=== PATIENT | male | born 1955 | race Caucasian/White ===

== ENCOUNTER 2019-03-11 05:58 | Outpatient (RCR) | payer MEDICARE, MEDICAID, SELFPAY | END 2019-03-25 00:01 | LOC: ONCMED 05:58 | PROVIDERS: Family Provider Family Medicine; Visit Provider Internal Medicine Hematology & Oncology | DX: C18.5 Malignant neoplasm of splenic flexure (principal); R97.0 Elevated carcinoembryonic antigen [CEA]; Z79.899 Other long term (current) drug therapy; Z90.49 Acquired absence of other specified parts of digestive tract | CPT/HCPCS: 36591; 80053; 82378; 85025; 99214; J1642 ==

== ENCOUNTER 2019-03-26 11:23 | Emergency (ER) | payer MEDICARE, MEDICAID, SELFPAY ==
[2019-03-26 11:35] VITALS: PULSE 82; RESP 16; TEMP 37; BMI 32.5
--- NOTE | 2019-03-26 11:53 | PC.NURSE ---
Brief assessment made-pt asked who his physician was-nurse told pt. Pt states, no you will move me to the other side of the ER Nurse informed pt this is the only clean room we have-Dr. Herrmann's side is full. Pt states, Give me my fucking medicine I m leaving. Pt left ambulatory. Pt did not appear to be in distress upon departure. Pt left before signing any forms.
== END 2019-03-26 11:57 | disposition home or self-care (01) ==
LOC: ER 11:55
PROVIDERS: Emergency Provider Family Medicine; Family Provider Family Medicine; PCP Family Medicine
DX: Z53.21 Procedure and treatment not carried out due to patient leaving prior to being seen by health care provider (principal)
CPT/HCPCS: 99281

== ENCOUNTER → 2019-03-31 13:33 | Outpatient (BNVA) | payer MEDICARE, MEDICAID, SELFPAY | PROVIDERS: Family Provider Family Medicine; PCP Family Medicine; Visit Provider Specialist | DX: G43.909 Migraine, unspecified, not intractable, without status migrainosus (principal) | CPT/HCPCS: 96372 ==

== ENCOUNTER → 2019-04-28 13:53 | Outpatient (BNVA) | payer MEDICARE, MEDICAID, SELFPAY | PROVIDERS: Family Provider Family Medicine; PCP Family Medicine; Visit Provider Specialist | DX: G43.909 Migraine, unspecified, not intractable, without status migrainosus (principal) | CPT/HCPCS: 96372 ==

== ENCOUNTER 2019-05-06 13:21 | Outpatient (CLI) | payer MEDICARE, MEDICAID, SELFPAY ==
[2019-05-06 14:31] LABS: Basophils # 0.1 10^3/uL (0.0-0.1); Eosinophils # 0.2 10^3/uL (0.0-0.8); Hematocrit 42.2 % (42.0-52.0); Hemoglobin 14.3 g/dL (11.7-16.6); Lymphocytes # 1.7 10^3/uL (0.8-4.8); Lymphocytes % 18.4 %; Mean Corpuscular HGB Conc 33.9 g/dL (30.0-36.0); Mean Corpuscular Hemoglobin 31.7 pg (28.0-34.0); Mean Corpuscular Volume 93.6 fL (80-94); Mean Platelet Volume 10.5 fL (7.4-10.4); Monocytes # 0.6 10^3/uL (0.2-0.9); Monocytes % 6.8 %; Neutrophils # 6.7 10^3/uL (1.8-7.7); Neutrophils % 71.4 %; Nucleated Red Blood Cells % 0 %; Platelet Count 181 10^3/cmm (130-400); Red Blood Count 4.51 10^6/uL (4.1-5.3); Red Cell Distribution Width 12.1 % (12.1-15.1); White Blood Count 9.4 10^3/uL (4.0-10.0)
[2019-05-06 14:55] LABS: Alanine Aminotransferase 10 U/L (0-41); Albumin Level 4.2 g/dL (3.5-5.2); Alkaline Phosphatase 96 IU/L (40-130); Anion Gap 19.4 (5-19); Aspartate Amino Transferase 17 U/L (0-40); Blood Urea Nitrogen 8 mg/dL (8-23); Calcium 10.1 mg/dL (8.5-10.5); Carbon Dioxide 22 mmol/L (22-29); Chloride 103 mmol/L (98-107); Globulin 4.6 g/dL (1.3-4.6); Glomerular Filtration Rate 113.2 mL/min (90-130); Glucose 163 mg/dL (65-115); Potassium 3.4 mmol/L (3.5-5.1); Sodium 141 mmol/L (136-145); Total Bilirubin 0.4 mg/dL (0.15-1.2); Total Protein 8.8 g/dL (6.6-8.7)
--- NOTE | 2019-05-06 15:29 | ONC FU_ITS ---
Dr. Melendrez follow up note Patient: Gary Christiansen Unit #: [id number]: 1955 Dicatated By: Deniz Melendrez M.D.Date of Visit:May 06, 2019 Onc Med Follow-up/Prog Note History of Present Illness: Mr. Christiansen, is a 63-year-old gentleman recently diagnosed with colon cancer involving left splenic flexure. He presented to his PMD with constipation and upper abdominal pain. He underwent colonoscopy on 07/04/2018 which showed a partially obstructing, medium-sized fungating, friable, infiltrative, malignant appearing mass around the level of distal transverse colon/splenic flexure. A biopsy was obtained which confirmed adenocarcinoma. His hemoglobin was 10.2 He underwent segmental resection on 07/18/2018. The final pathology report showed tumor size 4 x 3.5 cm, focal penetration through muscularis propria into serosal connective tissue. There was clear surgical margins but positive lymphovascular space invasion and 0 out of 12 lymph nodes showed metastatic disease. Stage II, high risk e.g. near obstructive lesion at presentation, lymphovascular invasion present, and normal expression of MSI/MMR. CT scan of abdomen was done in May 2018 showed possible minimum acute diverticulitis. Mr. Christiansen has been advised to pursue adjuvant chemotherapy. His treatment plan is XELOX. he will be on a 21 day cycle for 3-6 months. He began his first dose of XELOX on 09/16/2018.Completed 6 cycles of Xelox on 02/11/2019, follow-up CEA was mildly elevated at 8.2 on 03/11/2019 compared to 6.3 on 12/17/2018 so followed up by CT PET scan done on 04/30/2019 showed no evidence of metabolically active disease. 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 Came for follow-up, denies any specific complaints, no fever or chills, no nausea vomiting no diarrhea constipation, no jaundice, appetite is good. No peripheral numbness. Medications: Aimovig 1 Subcutaneous q 4 weeks, Albuterol Sulfate HFA Aerosol, solution Inhalation PRN, Capecitabine 3 Tablet (of 500 mg) Oral b.i.d., Capecitabine 1 Tablet (of 150 mg) Oral b.i.d., Cartia XT 1 Tablet (of 180 mg) Tablet Delayed Release Oral daily, Donepezil HCl 1 Tablet (of 23 mg) Oral daily, DULoxetine HCl 1 Capsule (of 60 mg) Capsule Delayed Release Particles Oral b.i.d., Flonase 1 (50 mcg/act) Suspension Nasal PRN, Gabapentin 1 Tablet (of 800 mg) Oral daily, LORazepam 0.5 - 1 Tablet (of 1 mg) Oral t.i.d. PRN, Memantine HCl ER 1 Capsule (of 28 mg) Capsule SR 24 HR Oral daily, Metoprolol Tartrate 0.5 Tablet (of 25 mg) Oral b.i.d., Morphine Sulfate 1 Tablet (of 30 mg) Oral four times a day PRN, Omeprazole 1 Capsule (of 40 mg) Capsule Delayed Release Oral daily, Potassium Chloride ER 1 Tablet (of 20 meq) Tablet, controlled release Oral PRN, Prochlorperazine Maleate 1 Tablet (of 10 mg) Oral q 4 hours PRN, Simvastatin 1 Tablet (of 80 mg) Oral daily, Topiramate 1 Tablet (of 100 mg) Oral b.i.d., Zonisamide 4 Capsule (of 100 mg) Oral daily Allergies: Flucelvax Review of Systems: Constitutional - Appetite is poor and weight is decreasing. Positive for hot flashes and night sweats. Energy level is poor, ENMT - Positive for sinus congestion/drainage. No mouth sores. No sore throat or difficulty swallowing, Hematologic/Lymphatic - Pt states that he bruises and bleeds easily, Respiratory - Positive for shortness of breath. No cough. No pleuritic pain or hemoptysis, Cardiovascular - No angina pain. No palpitations, Gastrointestinal - Positive for nausea. No heartburn or acid reflux. No constipation. No blood in the stool or black stools. Positive for diarrhea, Genitourinary (M) - No dysuria or hematuria. No urgency or incontinence. Positive for nocturia, Musculoskeletal - Positive for joint and bone pain, Neurologic - No headache or dizziness. No numbness/paresthesias or other focal neurologic symptoms, Psychiatric - Positive for insomnia and anxiety. Pt appears agitated today. Vital Signs: Performed on May 06, 2019 15:02 Height - 70.00 in Weight - 232.6 lbs (HIGH) BSA - 2.23 sq.m BMI - 33.37 (HIGH) Temperature - 98.0 F (LOW) Pulse - 82 /min Respiration - 20 /min BP - 128/80 mm(hg) O2 Sat - 98 % Pain - 10 Performance Status: 0 - Fully active, able to carry on all predisease activities without restrictions. (ECOG) Physical Examination: ENMT - No oral exudates, ulcers, masses, thrush or mucositis. Oropharynx clear. Tongue normal, Respiratory - Lungs are clear to auscultation without rhonchi or wheezing, Cardiovascular - Regular rate and rhythm of heart, Abdomen - Non-tender, non-distended, Good bowel sounds. No guarding or rebound tenderness. No pulsatile masses, Extremities - no edema. Lab/Imaging: Test performed on May 06, 2019 13:45 WBC 9.4 10 3/uL RBC 4.51 10 6/uL HGB 14.3 g/dL HCT 42.2 % MCV 93.6 fL MCH 31.7 pg MCHC 33.9 g/dL RDW 12.1 % Platelet Count 181 10 3/cmm MPV 10.5 fL Neutrophils 6.7 10 3/uL Lymphocytes 1.7 10 3/uL Monocytes 0.6 10 3/uL Eosinophils 0.2 10 3/uL Basophils 0.1 10 3/uL Neutrophil % 71.4 % Lymphocyte % 18.4 % Monocyte % 6.8 % Eosinophil % 2.0 % Basophils % 1.0 % Test performed on Mar 11, 2019 12:20 Sodium 138 mmol/L Potassium 3.7 mmol/L Chloride 100 mmol/L CO2 22 mmol/L Anion Gap 19.7 BUN 12 mg/dL Creatinine 0.6 mg/dL Cr Clearance (Est) 172.3100 mL/min eGFR 135.2 mL/min Glucose 167 mg/dl Calcium 9.5 mg/dL Protein, Total 8.7 g/dL Albumin 5.0 g/dL Globulin 3.7 gm/dL Bilirubin, Total 0.5 mg/dL ALT (SGPT) 17 U/L AST (SGOT) 29 U/L Alkaline Phosphatase 88 U/L CEA 8.2 ng/mL Impression: Infiltrating adenocarcinoma, involving left colon/splenic flexure status post exploratory laparotomy/segment resection on 07/19/2018, final pathology report showed low-grade, focal penetration through muscularis propria into serosal connective tissues, tumor size 4 x 3.5 cm, margins clear, T3 Lymphovascular invasion present, lymphatic response moderate, 0 out of 12 lymph nodes examined showed no evidence of metastatic disease N0 MSI/MMR normal expression Stage II, high risk e.g. near obstructive lesion at presentation, lymphovascular invasion present, and normal expression of MSI MMR. Mr. Christiansen has been advised to pursue adjuvant chemotherapy due to his high risk of recurrence. offered him XELOX as Mr Christiansen did not want to pursue continuous infusion of 5-FU. The current plan will be a 21 day cycle for 3-6 months as long as tolerated. Mr. Christiansen has been referred to Dr. Hargrove for venous access placement. 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 Plan: Discussed with patient regarding his labs white blood count 9.4 hemoglobin 14.3 crit 42.2 platelets 181,000 CMP within normal limit except glucose 163 and CEA is pending and CT PET scan findings were discussed with patient which showed no evidence of metastatic disease. Clinically, patient is doing well with no signs symptoms suggestive of recurrence of disease. 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 Patient has completed 6 months of recommended adjuvant chemotherapy with oxaliplatin/Xeloda. His follow-up CT PET scan showed no evidence of mass disease but his tumor marker CEA was persistently high. We'll follow his CEA level and if continued to go up we will consider follow-up colonoscopy to rule out local recurrence. Patient return to clinic in one month with CBC CMP and CEAand continue with monthly port maintenance Signed By: Deniz Melendrez M.D. <<Signature on File>>
[2019-05-06 20:28] LABS: Carcinoembryonic Antigen 5.5 ng/mL (0.0-4.7)
== END 2019-05-06 13:22 | disposition home or self-care (01) ==
LOC: ONCMED 13:24
PROVIDERS: Family Provider Family Medicine; PCP Family Medicine; Visit Provider Internal Medicine Hematology & Oncology
DX: C18.5 Malignant neoplasm of splenic flexure (principal); R97.0 Elevated carcinoembryonic antigen [CEA]; Z90.49 Acquired absence of other specified parts of digestive tract; Z92.21 Personal history of antineoplastic chemotherapy
CPT/HCPCS: 36591; 80053; 82378; 85025; 99214

== ENCOUNTER → 2019-05-09 12:01 | Outpatient (BNVA) | payer MEDICARE, MEDICAID, SELFPAY | PROVIDERS: Family Provider Family Medicine; PCP Family Medicine; Visit Provider Orthopaedic Surgery | DX: M25.572 Pain in left ankle and joints of left foot (principal) | CPT/HCPCS: 73610 ==

== ENCOUNTER → 2019-05-14 14:08 | Outpatient (BNVA) | payer MEDICARE, MEDICAID, SELFPAY | PROVIDERS: Family Provider Family Medicine; PCP Family Medicine; Referring Provider Nurse Practitioner; Visit Provider Nurse Practitioner | DX: E11.8 Type 2 diabetes mellitus with unspecified complications (principal); G89.4 Chronic pain syndrome; E78.00 Pure hypercholesterolemia, unspecified | CPT/HCPCS: 80053; 80061; 82044; 83036 ==

== ENCOUNTER → 2019-06-02 13:46 | Outpatient (BNVA) | payer MEDICARE, MEDICAID, SELFPAY | PROVIDERS: Family Provider Family Medicine; PCP Family Medicine; Visit Provider Specialist | DX: G43.709 Chronic migraine without aura, not intractable, without status migrainosus (principal) | CPT/HCPCS: 96372; G0463 ==

== ENCOUNTER 2019-06-10 12:23 | Outpatient (CLI) | payer MEDICARE, MEDICAID, SELFPAY ==
[2019-06-10 13:13] LABS: Alanine Aminotransferase 11 U/L (0-41); Albumin Level 4.3 g/dL (3.5-5.2); Alkaline Phosphatase 109 IU/L (40-130); Anion Gap 15.7 (5-19); Aspartate Amino Transferase 17 U/L (0-40); Blood Urea Nitrogen 11 mg/dL (8-23); Calcium 10.4 mg/dL (8.5-10.5); Carbon Dioxide 22 mmol/L (22-29); Chloride 103 mmol/L (98-107); Globulin 3.9 g/dL (1.3-4.6); Glomerular Filtration Rate 113.2 mL/min (90-130); Glucose 121 mg/dL (65-115); Osmolality Calculated 281 mOsm/kg (285-295); Potassium 3.7 mmol/L (3.5-5.1); Sodium 137 mmol/L (136-145); Total Bilirubin 0.4 mg/dL (0.15-1.2); Total Protein 8.2 g/dL (6.6-8.7)
[2019-06-10 14:26] LABS: Basophils # 0.1 10^3/uL (0.0-0.1); Eosinophils # 0.2 10^3/uL (0.0-0.8); Eosinophils % 1.9 %; Hematocrit 40.9 % (42.0-52.0); Hemoglobin 13.5 g/dL (11.7-16.6); Lymphocytes # 1.7 10^3/uL (0.8-4.8); Lymphocytes % 18.8 %; Mean Corpuscular Hemoglobin 31.9 pg (28.0-34.0); Mean Corpuscular Volume 96.7 fL (80-94); Mean Platelet Volume 10.9 fL (7.4-10.4); Monocytes # 0.8 10^3/uL (0.2-0.9); Monocytes % 8.7 %; Neutrophils # 6.2 10^3/uL (1.8-7.7); Neutrophils % 69.3 %; Nucleated Red Blood Cells % 0 %; Platelet Count 187 10^3/cmm (130-400); Red Blood Count 4.23 10^6/uL (4.1-5.3); Red Cell Distribution Width 12.8 % (12.1-15.1); White Blood Count 8.9 10^3/uL (4.0-10.0)
[2019-06-10 14:43] LABS: Carcinoembryonic Antigen 4.7 ng/mL (0.0-4.7)
--- NOTE | 2019-06-10 17:39 | ONC FU_ITS ---
Dr. Melendrez follow up note Patient: Gary Christiansen Unit #: [id number]: 1955 Dicatated By: Deniz Melendrez M.D.Date of Visit:Jun 10, 2019 Onc Med Follow-up/Prog Note History of Present Illness: Mr. Christiansen, is a 63-year-old gentleman recently diagnosed with colon cancer involving left splenic flexure. He presented to his PMD with constipation and upper abdominal pain. He underwent colonoscopy on 07/04/2018 which showed a partially obstructing, medium-sized fungating, friable, infiltrative, malignant appearing mass around the level of distal transverse colon/splenic flexure. A biopsy was obtained which confirmed adenocarcinoma. His hemoglobin was 10.2 He underwent segmental resection on 07/18/2018. The final pathology report showed tumor size 4 x 3.5 cm, focal penetration through muscularis propria into serosal connective tissue. There was clear surgical margins but positive lymphovascular space invasion and 0 out of 12 lymph nodes showed metastatic disease. Stage II, high risk e.g. near obstructive lesion at presentation, lymphovascular invasion present, and normal expression of MSI/MMR. CT scan of abdomen was done in May 2018 showed possible minimum acute diverticulitis. Mr. Christiansen has been advised to pursue adjuvant chemotherapy. His treatment plan is XELOX. he will be on a 21 day cycle for 3-6 months. He began his first dose of XELOX on 09/16/2018.Completed 6 cycles of Xelox on 02/11/2019, follow-up CEA was mildly elevated at 8.2 on 03/11/2019 compared to 6.3 on 12/17/2018 so followed up by CT PET scan done on 04/30/2019 showed no evidence of metabolically active disease. 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 Came for follow-up, denies any specific complaints, no fever or chills, no nausea vomiting, no abdominal pain, no jaundice, no diarrhea constipation. Medications: Aimovig 1 Subcutaneous q 4 weeks, Albuterol Sulfate HFA Aerosol, solution Inhalation PRN, Capecitabine 3 Tablet (of 500 mg) Oral b.i.d., Capecitabine 1 Tablet (of 150 mg) Oral b.i.d., Cartia XT 1 Tablet (of 180 mg) Tablet Delayed Release Oral daily, Donepezil HCl 1 Tablet (of 23 mg) Oral daily, DULoxetine HCl 1 Capsule (of 60 mg) Capsule Delayed Release Particles Oral b.i.d., Flonase 1 (50 mcg/act) Suspension Nasal PRN, Gabapentin 1 Tablet (of 800 mg) Oral daily, LORazepam 0.5 - 1 Tablet (of 1 mg) Oral t.i.d. PRN, Memantine HCl ER 1 Capsule (of 28 mg) Capsule SR 24 HR Oral daily, metFORMIN HCl 1 (850 mg) Tablet Oral daily, Metoprolol Tartrate 0.5 Tablet (of 25 mg) Oral b.i.d., Morphine Sulfate 1 Tablet (of 30 mg) Oral four times a day PRN, Narcan 1 - 2 [place](s) (of 4 mg/0.1mL) Liquid Nasal PRN, Omeprazole 1 Capsule (of 40 mg) Capsule Delayed Release Oral daily, Potassium Chloride ER 1 Tablet (of 20 meq) Tablet, controlled release Oral PRN, Prochlorperazine Maleate 1 Tablet (of 10 mg) Oral q 4 hours PRN, Simvastatin 1 Tablet (of 80 mg) Oral daily, Topiramate 1 Tablet (of 100 mg) Oral b.i.d., Zonisamide 4 Capsule (of 100 mg) Oral daily Allergies: Flucelvax Review of Systems: Constitutional - Appetite is poor and weight is decreasing. Positive for hot flashes and night sweats. Energy level is poor, ENMT - Positive for sinus congestion/drainage. No mouth sores. No sore throat or difficulty swallowing, Hematologic/Lymphatic - Pt states that he bruises and bleeds easily, Respiratory - Positive for shortness of breath. No cough. No pleuritic pain or hemoptysis, Cardiovascular - No angina pain. No palpitations, Gastrointestinal - Positive for nausea. No heartburn or acid reflux. No constipation. No blood in the stool or black stools. Positive for diarrhea, Genitourinary (M) - No dysuria or hematuria. No urgency or incontinence. Positive for nocturia, Musculoskeletal - Positive for joint and bone pain, Neurologic - No headache or dizziness. No numbness/paresthesias or other focal neurologic symptoms, Psychiatric - Positive for insomnia and anxiety. Pt appears agitated today. Vital Signs: Performed on Jun 10, 2019 14:20 Height - 70.00 in Weight - 225 lbs (LOW) BSA - 2.19 sq.m BMI - 32.28 (HIGH) Temperature - 97.1 F (LOW) Pulse - 83 /min Respiration - 20 /min BP - 159/88 mm(hg) (HIGH) O2 Sat - 98 % Pain - 9 Performance Status: 0 - Fully active, able to carry on all predisease activities without restrictions. (ECOG) Physical Examination: ENMT - No oral exudates, ulcers, masses, thrush or mucositis. Oropharynx clear. Tongue normal, Respiratory - Lungs are clear to auscultation without rhonchi or wheezing, Cardiovascular - Regular rate and rhythm of heart, Abdomen - Non-tender, non-distended, Good bowel sounds. No guarding or rebound tenderness. No pulsatile masses, Extremities - no edema. Lab/Imaging: Test performed on May 06, 2019 13:45 Sodium 141 mmol/L Potassium 3.4 mmol/L Chloride 103 mmol/L CO2 22 mmol/L Anion Gap 19.4 BUN 8 mg/dL Creatinine 0.7 mg/dL Cr Clearance (Est) 147.6900 mL/min eGFR 113.2 mL/min Glucose 163 mg/dL Calcium 10.1 mg/dL Protein, Total 8.8 g/dL Albumin 4.2 g/dL Globulin 4.6 g/dL Bilirubin, Total 0.4 mg/dL ALT (SGPT) 10 U/L AST (SGOT) 17 U/L Alkaline Phosphatase 96 IU/L WBC 9.4 10 3/uL RBC 4.51 10 6/uL HGB 14.3 g/dL HCT 42.2 % MCV 93.6 fL MCH 31.7 pg MCHC 33.9 g/dL RDW 12.1 % Platelet Count 181 10 3/cmm MPV 10.5 fL Neutrophils 6.7 10 3/uL Lymphocytes 1.7 10 3/uL Monocytes 0.6 10 3/uL Eosinophils 0.2 10 3/uL Basophils 0.1 10 3/uL Neutrophil % 71.4 % Lymphocyte % 18.4 % Monocyte % 6.8 % Eosinophil % 2.0 % Basophils % 1.0 % CEA 5.5 ng/mL Impression: Infiltrating adenocarcinoma, involving left colon/splenic flexure status post exploratory laparotomy/segment resection on 07/19/2018, final pathology report showed low-grade, focal penetration through muscularis propria into serosal connective tissues, tumor size 4 x 3.5 cm, margins clear, T3 Lymphovascular invasion present, lymphatic response moderate, 0 out of 12 lymph nodes examined showed no evidence of metastatic disease N0 MSI/MMR normal expression Stage II, high risk e.g. near obstructive lesion at presentation, lymphovascular invasion present, and normal expression of MSI MMR. Mr. Christiansen has been advised to pursue adjuvant chemotherapy due to his high risk of recurrence. offered him XELOX as Mr Christiansen did not want to pursue continuous infusion of 5-FU. The current plan will be a 21 day cycle for 3-6 months as long as tolerated. Mr. Christiansen has been referred to Dr. Hargrove for venous access placement. 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 Plan: Discussed with patient regarding his labs white blood count 8.9 hemoglobin 13.5 crit 40.9 platelets 187,000 CMP within normal limits CEA is pending Clinically, patient doing well, with no new signs symptoms suggestive of recurrence of disease. Follow-up CBC CMP within normal limits but CEA is pending. We will also refer him to Dr. Corrigan for follow-up colonoscopy. And we'll flush and Port-A-Cath return to clinic in one month with CEA Signed By: Barjinder Melendrez, M.D. <<Signature on File>>
== END 2019-06-10 12:24 | disposition home or self-care (01) ==
PROVIDERS: Family Provider Family Medicine; PCP Nurse Practitioner; Visit Provider Internal Medicine Hematology & Oncology
DX: Z08 Encounter for follow-up examination after completed treatment for malignant neoplasm (principal); Z85.038 Personal history of other malignant neoplasm of large intestine; Z79.899 Other long term (current) drug therapy; Z90.49 Acquired absence of other specified parts of digestive tract; Z92.21 Personal history of antineoplastic chemotherapy
CPT/HCPCS: 36591; 80053; 82378; 85025; G0463

== ENCOUNTER 2019-07-08 09:58 | Outpatient (CLI) | payer MEDICARE, MEDICAID, SELFPAY | END 2019-07-08 09:59 | disposition home or self-care (01) | LOC: ONCMED 09:58 | PROVIDERS: Family Provider Family Medicine; PCP Nurse Practitioner; Visit Provider Internal Medicine Hematology & Oncology | DX: Z45.2 Encounter for adjustment and management of vascular access device (principal) | CPT/HCPCS: 96523 ==

== ENCOUNTER → 2019-07-15 12:22 | Outpatient (BNVA) | payer MEDICARE, MEDICAID, SELFPAY | PROVIDERS: Family Provider Family Medicine; PCP Nurse Practitioner; Visit Provider Specialist | DX: G43.711 Chronic migraine without aura, intractable, with status migrainosus (principal) | CPT/HCPCS: 96372 ==

== ENCOUNTER 2019-08-08 08:59 | Outpatient (CLI) | payer MEDICARE, MEDICAID, SELFPAY | END 2019-08-08 09:00 | disposition home or self-care (01) | LOC: ONCMED 09:06 | PROVIDERS: PCP Nurse Practitioner; Visit Provider Internal Medicine Hematology & Oncology | DX: Z45.2 Encounter for adjustment and management of vascular access device (principal); C18.5 Malignant neoplasm of splenic flexure; D50.9 Iron deficiency anemia, unspecified | CPT/HCPCS: 96523 ==

== ENCOUNTER → 2019-08-14 13:54 | Outpatient (BNVA) | payer MEDICARE, MEDICAID, SELFPAY | PROVIDERS: PCP Nurse Practitioner; Visit Provider Specialist | DX: G43.711 Chronic migraine without aura, intractable, with status migrainosus (principal) | CPT/HCPCS: 96372 ==

== ENCOUNTER 2019-09-10 11:29 | Outpatient (CLI) | payer MEDICARE, MEDICAID, SELFPAY ==
[2019-09-10 12:33] LABS: Basophils # 0.1 10^3/uL (0.0-0.1); Eosinophils # 0.1 10^3/uL (0.0-0.8); Eosinophils % 1.4 %; Hematocrit 43.6 % (42.0-52.0); Hemoglobin 14.4 g/dL (11.7-16.6); Lymphocytes # 1.9 10^3/uL (0.8-4.8); Lymphocytes % 26.9 %; Mean Corpuscular Hemoglobin 32.5 pg (28.0-34.0); Mean Corpuscular Volume 98.4 fL (80-94); Mean Platelet Volume 10.5 fL (7.4-10.4); Monocytes # 0.6 10^3/uL (0.2-0.9); Neutrophils # 4.3 10^3/uL (1.8-7.7); Neutrophils % 61.6 %; Nucleated Red Blood Cells % 0 %; Platelet Count 168 10^3/cmm (130-400); Red Blood Count 4.43 10^6/uL (4.1-5.3); Red Cell Distribution Width 11.9 % (12.1-15.1)
[2019-09-10 12:49] LABS: Alanine Aminotransferase 13 U/L (0-41); Albumin Level 4.3 g/dL (3.5-5.2); Alkaline Phosphatase 75 IU/L (40-130); Anion Gap 17.8 (5-19); Aspartate Amino Transferase 19 U/L (0-40); Blood Urea Nitrogen 10 mg/dL (8-23); Calcium 9.6 mg/dL (8.5-10.5); Carbon Dioxide 20 mmol/L (22-29); Chloride 102 mmol/L (98-107); Globulin 3.5 g/dL (1.3-4.6); Glomerular Filtration Rate 135.2 mL/min (90-130); Glucose 131 mg/dL (65-115); Osmolality Calculated 280 mOsm/kg (285-295); Potassium 3.8 mmol/L (3.5-5.1); Sodium 136 mmol/L (136-145); Total Bilirubin 0.4 mg/dL (0.15-1.2); Total Protein 7.8 g/dL (6.6-8.7)
--- NOTE | 2019-09-10 13:41 | ONC FU_ITS ---
Dr. Melendrez follow up note Patient: Gary Christiansen Unit #: [id number]: 1955 Dicatated By: Deniz Melendrez M.D.Date of Visit:Sep 10, 2019 Onc Med Follow-up/Prog Note History of Present Illness: Mr. Christiansen, is a 64-year-old gentleman recently diagnosed with colon cancer involving left splenic flexure. He presented to his PMD with constipation and upper abdominal pain. He underwent colonoscopy on 07/04/2018 which showed a partially obstructing, medium-sized fungating, friable, infiltrative, malignant appearing mass around the level of distal transverse colon/splenic flexure. A biopsy was obtained which confirmed adenocarcinoma. His hemoglobin was 10.2 He underwent segmental resection on 07/18/2018. The final pathology report showed tumor size 4 x 3.5 cm, focal penetration through muscularis propria into serosal connective tissue. There was clear surgical margins but positive lymphovascular space invasion and 0 out of 12 lymph nodes showed metastatic disease. Stage II, high risk e.g. near obstructive lesion at presentation, lymphovascular invasion present, and normal expression of MSI/MMR. CT scan of abdomen was done in May 2018 showed possible minimum acute diverticulitis. Mr. Christiansen has been advised to pursue adjuvant chemotherapy. His treatment plan is XELOX. he will be on a 21 day cycle for 3-6 months. He began his first dose of XELOX on 09/16/2018.Completed 6 cycles of Xelox on 02/11/2019, follow-up CEA was mildly elevated at 8.2 on 03/11/2019 compared to 6.3 on 12/17/2018 so followed up by CT PET scan done on 04/30/2019 showed no evidence of metabolically active disease. 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 Came for follow-up, denies any specific complaints, no fever chills, no nausea or vomiting, no diarrhea or constipation, no mouth sores, no jaundice, no abdominal pain, appetite is good. Patient said he lost his phone service and due to coronavirus he missed his follow-up appointment. He was also referred to Dr. Corrigan for follow-up colonoscopy, patient could not go there and now requesting follow-up with him for colonoscopy. Medications: Aimovig 1 Subcutaneous q 4 weeks, Albuterol Sulfate HFA Aerosol, solution Inhalation PRN, Capecitabine 3 Tablet (of 500 mg) Oral b.i.d., Capecitabine 1 Tablet (of 150 mg) Oral b.i.d., Cartia XT 1 Tablet (of 180 mg) Tablet Delayed Release Oral daily, Donepezil HCl 1 Tablet (of 23 mg) Oral daily, DULoxetine HCl 1 Capsule (of 60 mg) Capsule Delayed Release Particles Oral b.i.d., Flonase 1 (50 mcg/act) Suspension Nasal PRN, Gabapentin 1 Tablet (of 800 mg) Oral daily, LORazepam 0.5 - 1 Tablet (of 1 mg) Oral t.i.d. PRN, Memantine HCl ER 1 Capsule (of 28 mg) Capsule SR 24 HR Oral daily, metFORMIN HCl 1 (850 mg) Tablet Oral daily, Metoprolol Tartrate 0.5 Tablet (of 25 mg) Oral b.i.d., Morphine Sulfate 1 Tablet (of 30 mg) Oral four times a day PRN, Narcan 1 - 2 [place](s) (of 4 mg/0.1mL) Liquid Nasal PRN, Omeprazole 1 Capsule (of 40 mg) Capsule Delayed Release Oral daily, Potassium Chloride ER 1 Tablet (of 20 meq) Tablet, controlled release Oral PRN, Prochlorperazine Maleate 1 Tablet (of 10 mg) Oral q 4 hours PRN, Simvastatin 1 Tablet (of 80 mg) Oral daily, Topiramate 1 Tablet (of 100 mg) Oral b.i.d., Zonisamide 4 Capsule (of 100 mg) Oral daily Allergies: Flucelvax Review of Systems: Constitutional - Appetite is poor and weight is decreasing. Positive for hot flashes and night sweats. Energy level is poor, ENMT - Positive for sinus congestion/drainage. No mouth sores. No sore throat or difficulty swallowing, Hematologic/Lymphatic - Pt states that he bruises and bleeds easily, Respiratory - Positive for shortness of breath. No cough. No pleuritic pain or hemoptysis, Cardiovascular - No angina pain. No palpitations, Gastrointestinal - Positive for nausea. No heartburn or acid reflux. No constipation. No blood in the stool or black stools. Positive for diarrhea, Genitourinary (M) - No dysuria or hematuria. No urgency or incontinence. Positive for nocturia, Musculoskeletal - Positive for joint and bone pain, Neurologic - No headache or dizziness. No numbness/paresthesias or other focal neurologic symptoms, Psychiatric - Positive for insomnia and anxiety. Pt appears agitated today. Vital Signs: Performed on Sep 10, 2019 13:18 Height - 70.00 in Weight - 232.6 lbs (HIGH) BSA - 2.23 sq.m BMI - 33.37 (HIGH) Temperature - 97.7 F (LOW) Pulse - 88 /min Respiration - 20 /min BP - 114/78 mm(hg) O2 Sat - 97 % Pain - 10 Performance Status: 0 - Fully active, able to carry on all predisease activities without restrictions. (ECOG) Physical Examination: ENMT - No mouth sores, no thrush, no jaundice, Respiratory - Lungs are clear, Cardiovascular - Regular rate and rhythm of heart, Abdomen - Soft, bowel sounds present, nontender, Extremities - No visible edema, or rash. Lab/Imaging: Test performed on Jun 10, 2019 12:41 Sodium 137 mmol/L Potassium 3.7 mmol/L Chloride 103 mmol/L CO2 22 mmol/L Anion Gap 15.7 BUN 11 mg/dL Creatinine 0.7 mg/dL Cr Clearance (Est) 147.6900 mL/min eGFR 113.2 mL/min Glucose 121 mg/dL Calcium 10.4 mg/dL Protein, Total 8.2 g/dL Albumin 4.3 g/dL Globulin 3.9 g/dL Bilirubin, Total 0.4 mg/dL ALT (SGPT) 11 U/L AST (SGOT) 17 U/L Alkaline Phosphatase 109 IU/L WBC 8.9 10 3/uL RBC 4.23 10 6/uL HGB 13.5 g/dL HCT 40.9 % MCV 96.7 fL MCH 31.9 pg MCHC 33.0 g/dL RDW 12.8 % Platelet Count 187 10 3/cmm MPV 10.9 fL Neutrophils 6.2 10 3/uL Lymphocytes 1.7 10 3/uL Monocytes 0.8 10 3/uL Eosinophils 0.2 10 3/uL Basophils 0.1 10 3/uL Neutrophil % 69.3 % Lymphocyte % 18.8 % Monocyte % 8.7 % Eosinophil % 1.9 % Basophils % 1.0 % CEA 4.7 ng/mL Impression: Infiltrating adenocarcinoma, involving left colon/splenic flexure status post exploratory laparotomy/segment resection on 07/19/2018, final pathology report showed low-grade, focal penetration through muscularis propria into serosal connective tissues, tumor size 4 x 3.5 cm, margins clear, T3 Lymphovascular invasion present, lymphatic response moderate, 0 out of 12 lymph nodes examined showed no evidence of metastatic disease N0 MSI/MMR normal expression Stage II, high risk e.g. near obstructive lesion at presentation, lymphovascular invasion present, and normal expression of MSI MMR. Mr. Christiansen has been advised to pursue adjuvant chemotherapy due to his high risk of recurrence. offered him XELOX as Mr Christiansen did not want to pursue continuous infusion of 5-FU. The current plan will be a 21 day cycle for 3-6 months as long as tolerated. Mr. Christiansen has been referred to Dr. Hargrove for venous access placement. 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 Plan: Discussed with patient regarding his labs white blood count 7 hemoglobin 14.4 hematocrit 43.6 platelets 168,000 CMP within normal limits CEA is pending Clinically, patient is doing well with no signs symptoms suggestive of recurrence of disease, we will flush his Port-A-Cath today and then he will continue with monthly port maintenance and we will see him back in 3 months unless his follow-up CEA shows progression then will consider CT scan of chest abdomen pelvis. In the meantime we will call Dr. Corrigan's office and request follow-up appointment for follow-up colonoscopy, as patient has no contact phone service at this point. Return to clinic in 3 months with CBC CMP and CEA Signed By: Deniz Melendrez M.D. <<Signature on File>>
[2019-09-10 13:57] LABS: Carcinoembryonic Antigen 5.1 ng/mL (0.0-4.7)
== END 2019-09-10 11:30 | disposition home or self-care (01) ==
LOC: ONCMED 11:36
PROVIDERS: Visit Provider Internal Medicine Hematology & Oncology
DX: Z08 Encounter for follow-up examination after completed treatment for malignant neoplasm (principal); Z85.038 Personal history of other malignant neoplasm of large intestine; Z95.828 Presence of other vascular implants and grafts; R91.8 Other nonspecific abnormal finding of lung field
CPT/HCPCS: 36415; 80053; 82378; 85025; 99214

== ENCOUNTER → 2019-09-24 13:48 | Outpatient (BNVA) | payer MEDICARE, MEDICAID, SELFPAY | PROVIDERS: Visit Provider Specialist | DX: G43.709 Chronic migraine without aura, not intractable, without status migrainosus (principal); Z71.89 Other specified counseling | CPT/HCPCS: 96372 ==

== ENCOUNTER 2019-10-02 06:13 | Day surgery (SDC) | payer MEDICARE, MEDICAID, SELFPAY ==
--- NOTE | 2019-10-01 09:16 | ANES.PREANE2 ---
Pre-Anesthetic Assessment Pre-Anesthetic Assessment: Height/Weight: Height 1.78 m Weight 105.687 kg Proposed Procedure: Operation Date: 10/02/19 07:45 Proposed Procedures p Colonoscopy(Not Applicable) - Galen Corrigan MD Social: Social History: No alcohol and No tobacco Exam: Pre-Anes Outpt Exam: alert, oriented x 3, clear to auscultation bilaterally and regular rate & rhythm Airway: Submandibular: WNL Cervical ROM: WNL MP: 2 History/ROS: No significant history except as noted Pulmonary: Pulmonary: COPD and PEREZ CV/HEM: CV/HEM: Afib, CHF and HTN : : None reported Hepatic: Hepatic: None reported GI: GI: GERD and None reported Metabolic: Metabolic: DM, Hyperlipidemia and Morbid obesity Musc/skel: Musc/skel: Lower Back Pain, OA/DJD and Weakness (LLE) Neuropsych: Neuropsych: None reported Anesthetic Plan: ASA status: 3 Anesthesia: Anesthesia Evaluation and MAC Risk of > 500 ml blood loss (7ml/kg in children): No PFSH Anesthesia PFSH: Medical History Atrial fibrillation and flutter CHF (congestive heart failure) Chronic migraine Chronic pain syndrome Colon cancer Controlled diabetes mellitus with complication, without long-term current use of insulin COPD (chronic obstructive pulmonary disease) Depression, controlled GI bleed Hyperlipidemia Hypertension Insomnia Memory impairment Obstructive sleep apnea Surgical History S/P arthroscopic surgery of left knee S/P cataract surgery S/P insertion of spinal cord stimulator Family History Other CAD (coronary artery disease) Diabetes Social History Smoking and tobacco status: never smoked Alcohol intake: never History of recent travel: No Data Anesthesia Cardiac Studies: No Data to Display
[2019-10-02 06:40] VITALS: BP 113/82; PULSE 103; RESP 20; TEMP 36.4; O2SAT 96; BMI 33.4
--- NOTE | 2019-10-02 06:43 | W.PM.OPSUD ---
Surgery/Procedure H&P Update DATE OF PROCEDURE: October 02, 2019 DATE H&P PERFORMED: 09/23/19 H&P UPDATE INFORMATION: No changes to prior documentation PLANNED PROCEDURE: Operation Date: 10/02/19 07:00 Proposed Procedures p Colonoscopy(Not Applicable) - Galen Corrigan MD
[2019-10-02 06:57] LABS: Glucose Point of Care 156 mg/dL (70-110)
[2019-10-02] MEDS: sodium chloride 0.9% 1,000 ML 30 ML IV (07:00)
[2019-10-02 07:20] VITALS: BP 126/89; PULSE 93; RESP 16; TEMP 36.1; O2SAT 95
--- NOTE | 2019-10-02 07:27 | ANE.PACU2 ---
Inpatient post-anesthesia follow up: Airway intact: Yes Vital signs: Temperature 97.0 F Pulse Rate 93 Respiratory Rate 16 Blood Pressure 126/89 Pulse Oximetry 95 Oxygen Delivery Me thod Nasal Cannula Oxygen Flow Rate 3 Fraction of Inspir ed Oxygen Hydration adequate: Yes Nausea and vomiting: No Mental status: Baseline
[2019-10-02 07:29] VITALS: BP 145/98; PULSE 97; RESP 18; O2SAT 95
== END 2019-10-02 07:40 | disposition home or self-care (01) ==
PROVIDERS: Visit Provider Surgery
PROC: 0DJD8ZZ Inspection of Lower Intestinal Tract, Via Natural or Artificial Opening Endoscopic (ICD-10-PCS; CPT 45378; principal; 2019-10-02 07:00)
DX: Z85.038 Personal history of other malignant neoplasm of large intestine (principal); Z86.010 Personal history of colon polyps; K43.2 Incisional hernia without obstruction or gangrene; K57.30 Diverticulosis of large intestine without perforation or abscess without bleeding; K64.8 Other hemorrhoids; J44.9 Chronic obstructive pulmonary disease, unspecified; I48.91 Unspecified atrial fibrillation; I11.0 Hypertensive heart disease with heart failure; I50.9 Heart failure, unspecified; E78.5 Hyperlipidemia, unspecified; M19.90 Unspecified osteoarthritis, unspecified site; G47.33 Obstructive sleep apnea (adult) (pediatric); Z87.11 Personal history of peptic ulcer disease; Z79.84 Long term (current) use of oral hypoglycemic drugs
CPT/HCPCS: 12345; 36416; 45378; 82962; J2704; J7030

== ENCOUNTER 2019-10-10 09:39 | Outpatient (CLI) | payer MEDICARE, MEDICAID, SELFPAY | END 2019-10-10 09:40 | disposition home or self-care (01) | LOC: ONCMED 09:42 | PROVIDERS: Visit Provider Internal Medicine Hematology & Oncology | DX: Z45.2 Encounter for adjustment and management of vascular access device (principal) | CPT/HCPCS: 96523 ==

== ENCOUNTER 2019-11-10 09:42 | Outpatient (CLI) | payer MEDICARE, MEDICAID, SELFPAY | END 2019-11-10 09:43 | disposition home or self-care (01) | LOC: ONCMED 09:47 | PROVIDERS: Visit Provider Internal Medicine Hematology & Oncology | DX: Z45.2 Encounter for adjustment and management of vascular access device (principal) | CPT/HCPCS: 96523 ==

== ENCOUNTER 2020-03-16 22:51 | Inpatient (IN) | payer MEDICARE, MEDICAID, SELFPAY ==
--- NOTE | 2020-03-16 22:56 | XRR_ITS ---
PROCEDURE INFORMATION: Exam: XR Left Hip Exam date and time: 03/16/2020 10:59 PM Age: 65 years old Clinical indication: Injury or trauma; Fall; Blunt trauma (contusions or hematomas); Left; Hip TECHNIQUE: Imaging protocol: XR Left hip Views: AP neutral and frogleg, 2 views. COMPARISON: CT abdomen pelvis w con* [id number] 10/13/2018 12:35 PM FINDINGS: Bones/joints: Unremarkable. No acute fracture. Soft tissues: Unremarkable. XR/XR hip LT 2-3V wo/w pel* [id number] IMPRESSION: No acute findings.
--- NOTE | 2020-03-16 22:59 | XRR_ITS ---
PROCEDURE INFORMATION: Exam: XR Chest, 1 View Exam date and time: 03/16/2020 11:13 PM Age: 65 years old Clinical indication: Injury or trauma and screening exam; Fall; Pre-operative exam; Cardiovascular screening and respiratory screening exam; Blunt trauma (contusions or hematomas) TECHNIQUE: Imaging protocol: XR of the chest Views: Frontal portable view of the chest. COMPARISON: CR Chest 1 [place] [id number] 02/04/2019 4:48 PM FINDINGS: Tubes, catheters and devices: Lower thoracic intraspinal neural stimulator leads. The left subclavian venous portacatheter tip is in the lower SVC. Lungs: Moderate pulmonary hypoexpansion. The lungs are otherwise peripherally clear bilaterally. The pulmonary vasculature is normal. Pleural space: No pleural effusion. No pneumothorax. Heart/Mediastinum: The heart is normal in size and contour. Mediastinum: Stable. Vasculature: Mild aortic arch atherosclerotic calcification without ectasia. Bones/joints: Stable. XR/XR chest 1V portable [id number] IMPRESSION: Moderate pulmonary hypoexpansion.
--- NOTE | 2020-03-16 22:59 | XRR_ITS ---
PROCEDURE INFORMATION: Exam: XR Left Shoulder Exam date and time: 03/16/2020 11:19 PM Age: 65 years old Clinical indication: Injury or trauma; Fall; Blunt trauma (contusions or hematomas); Shoulder; Left TECHNIQUE: Imaging protocol: XR Left shoulder. Views: AP internal and external rotation views, and a scapular Y view of the left shoulder. COMPARISON: No relevant prior studies available. FINDINGS: Bones/joints: Normal. Soft tissues: Normal. XR/XR shoulder LT min 2V* [id number] IMPRESSION: No acute bony injury identified.
--- NOTE | 2020-03-16 23:00 | W.ED.FALL ---
HPI - Fall General: Chief Complaint: Arrhythmia/Palpitations Stated Complaint: LEFT HIP PAIN Time Seen by Provider: 03/16/20 22:59 Source: patient and EMS Mode of arrival: EMS Limitations: no limitations History of Present Illness: HPI Narrative: Ben is a 65-year-old male states he had a fall on Sunday. He states his ground-level fall and he landed on his left hip and shoulder. He states he had left hip and shoulder pain since then. He states he has not been able to ambulate. He states his pain is sharp in nature and rates today 5 out of 10. Denies any head injury. Denies any neck pain. MD complaint: fall Onset (ago): day(s) Associated symptoms-after fall: Denies abdominal pain, chest pain, headache(s) or neck pain Review of Systems Const: Denies: fever(s), chills, body aches or change in appetite Eyes: Denies: blurry vision or eye discomfort ENMT: Denies: throat pain or dental pain Card: Denies: chest pain Resp: Denies: dyspnea GI: Denies: abdominal pain, nausea, vomiting or diarrhea : Denies: dysuria Musc: Reports: extremity pain; Denies: neck pain or back pain Skin/Breast: Denies: rash Neuro: Denies: headache(s) Psych: Denies: depression Kvng/Lymph: Denies: easy bruising All/Imm: Denies: urticaria PFSH ED PFSH: Medical History (Updated 03/17/20 @ 01:04 by Tomasz Day MD) Atrial fibrillation Atrial fibrillation and flutter CHF (congestive heart failure) Chronic migraine Chronic pain syndrome Colon cancer Controlled diabetes mellitus with complication, without long-term current use of insulin COPD (chronic obstructive pulmonary disease) Depression, controlled GI bleed Hyperlipidemia Hypertension Insomnia Memory impairment Obstructive sleep apnea Surgical History (Updated 10/06/19 @ 15:17 by Sheree Sotelo LPN) S/P arthroscopic surgery of left knee S/P cataract surgery S/P insertion of spinal cord stimulator Family History Other CAD (coronary artery disease) Diabetes Social History Smoking and tobacco status: never smoked Alcohol intake: never History of recent travel: No Physical Exam Const: COMMON NORMALS: no acute distress, patient oriented x3 and healthy appearing HENMT: COMMON NORMALS: normocephalic and atraumatic HEAD & SCALP: normocephalic and atraumatic Eye: COMMON NORMALS: Equal, round and reactive pupils present and EOMs intact bilaterally PUPIL: Yes Equal, round and reactive pupils present Neck/C-Spine: COMMON NORMALS: full ROM and supple Chest: COMMONS NORMALS: normal inspection of the chest and normal palpation of entire chest wall Resp: COMMON NORMALS: normal respiratory effort, No retractions, No use of accessory muscles and clear to auscultation bilaterally AUSCULTATION: clear to auscultation bilaterally Cardio: COMMON NORMALS: No murmurs present (Cardio) RATE: tachycardic RHYTHM: abnormal rhythm irregularly irregular GI: COMMON NORMALS: Normal to inspection, nondistended, normoactive bowel sounds present, Soft to palpation, non-tender and no masses PALPATION: Yes Soft to palpation Extremity: NARRATIVE EXTREMITY EXAM: Tenderness to left hip along with left shoulder patient has any pain with range of motion Neuro: COMMON NORMALS: patient oriented x3, moves all extremities and no focal motor deficits Psych: COMMON NORMALS: mental status grossly normal, Normal thought process present and cooperative THOUGHT PROCESS: Normal thought process present Skin: COMMON NORMALS: no rashes or lesions noted and no wounds GENERAL SKIN EXAM: no rashes or lesions noted Course Vital Signs: Vital signs: Vital Signs Temperature 98.1 F 03/16/20 23:21 Pulse Rate 120 H 03/17/20 01:05 Respiratory Rate 25 H 03/17/20 01:05 Blood Pressure 130/99 03/17/20 01:05 Pulse Oximetry 96 03/17/20 01:05 MDM - Fall MDM Narrative: Medical decision making narrative: Ben presents here after a fall. He has no signs of a head injury from his fall. His main complaint is left hip pain. CT showed no fracture. Patient was in A. fib with RVR likely due to nonmed compliance. Patient is on a Cardizem drip here and his heart rate has improved. I spoke to the hospitalist and will admit to the cardiac stepdown unit. Lab Data: Labs: Lab Results 03/16/20 03/16/20 03/16/20 Range/Units 22:43 22:43 22:43 WBC 16.2 H (4.0-10.0) 10^3/ uL RBC 5.40 H (4.1-5.3) 10^6/u L Hgb 16.9 H (11.7-16.6) g/dL Hct 51.2 (42.0-52.0) % MCV 94.8 H (80-94) fL MCH 31.3 (28.0-34.0) pg MCHC 33.0 (30.0-36.0) g/dL RDW 11.8 L (12.1-15.1) % Plt Count 160 (130-400) 10^3/c mm MPV 11.6 H (7.4-10.4) fL Neut % (Auto) 77.9 % Lymph % (Auto) 12.9 % [place] % (Auto) 7.8 % Eos % (Auto) 0.2 % Baso % (Auto) 0.6 % Neut # (Auto) 12.57 H (1.8-7.7) 10^3/u L Lymph # (Auto) 2.1 (0.8-4.8) 10^3/u L [place] # (Auto) 1.3 H (0.2-0.9) 10^3/u L Eos # (Auto) 0.0 (0.0-0.8) 10^3/u L Baso # (Auto) 0.1 (0.0-0.1) 10^3/u L Nucleated RBC % (a uto) 0 % Nucleated RBCs # 0.0 /100WBC PT 15.30 H (12.1-14.9) SECO NDS INR 1.17 (0.8-1.2) Sodium 138 (136-145) mmol/L Potassium 4.0 (3.5-5.1) mmol/L Chloride 100 (98-107) mmol/L Carbon Dioxide 24 (22-29) mmol/L Anion Gap 18.0 (5-19) BUN 21 (8-23) mg/dL Creatinine 0.6 L (0.7-1.2) mg/dL GFR Calculation 134.8 H (90-130) mL/min Glucose 276 H (65-115) mg/dL Calculated Osmolal ity 299 H (285-295) mOsm/k g Calcium 10.0 (8.5-10.5) mg/dL Total Bilirubin 1.2 (0.15-1.2) mg/dL AST 22 (0-40) U/L ALT 20 (0-41) U/L Alkaline Phosphata se 95 (40-130) IU/L Total Protein 7.9 (6.6-8.7) g/dL Albumin 4.0 (3.5-5.2) g/dL Globulin 3.9 (1.3-4.6) g/dL Imaging Data^: CXR: Attestation: I personally reviewed and interpreted this imaging study as follows: My impression: no acute abnormality xr L shoulder: My impression: no acute abnormality CT Abd/Pel: Radiologist's impression: [address] [id number] [address] Scan Report Signed Patient: Gary Christiansen Unit #: [id number] : 1955 Age/Sex: 65 / M ADM Date: 03/16/20 Loc: ER Room/Bed: Attending Dr: Ordering Provider/Ordering MD: Tomasz Day MD Date of Service: 03/16/20 Procedure(s): CT pelvis wo con [id number] Accession Number(s): [id number] Report Number: [id number] PROCEDURE INFORMATION: Exam: CT Pelvis Without Contrast; Skeletal Exam date and time: 03/16/2020 12:10 AM Age: 65 years old Clinical indication: Injury or trauma; Blunt trauma (contusions or hematomas); Left; Prior surgery; Surgery type: Colon; Patient HX: Fall yesterday. C/O hip pain. ; Additional info: Fall/ L hip pain TECHNIQUE: Imaging protocol: Computed tomography images of the pelvis without contrast. Exam focused on the skeletal structures. Radiation optimization: All CT scans at this facility use at least one of these dose optimization techniques: automated exposure control; mA and/or kV adjustment per patient size (includes targeted exams where dose is matched to clinical indication); or iterative reconstruction. COMPARISON: CT abdomen pelvis w con* [id number] 10/13/2018 12:35 PM RADIATION DOSE METRICS: Total DLP (mGy-cm): 611.07 FINDINGS: Liver: Small small fatty supraumbilical hernia. Stomach and bowel: Colonic diverticuli noted. No evident pericolic inflammatory change. No findings of abnormal bowel distention. Bones/joints: Unremarkable. No acute fracture. No dislocation. Soft tissues: Unremarkable. CT/CT pelvis wo con [id number] IMPRESSION: No acute findings. EKG Data^: EKG 1: Attestation: I personally reviewed and interpreted this EKG as follows: EKG interpretation date: 03/16/20 EKG interpretation time: 23:15 Interpretation: afib with rvr hr [address] or t wave abnormalities qrs [id number] Discharge Plan Discharge Patient Disposition: Admitted As Inpatient Clinical Impression: Atrial fibrillation Qualifiers: Atrial fibrillation type: unspecified Qualified Code(s): I48.91 - Unspecified atrial fibrillation Fall Qualifiers: Encounter type: initial encounter Qualified Code(s): W19.XXXA - Unspecified fall, initial encounter Condition: Stable Coding Level of Care Code ED [employer] Setter for g Fwd Exam Comprehensive
--- NOTE | 2020-03-16 23:02 | ECG_ITS ---
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 Measurements Intervals [place] Rate: 162 P: MD: QRS: 60 QRSD: 109 T: -1 QT: 278 QTc: 457 Interpretive Statements ATRIAL FIBRILLATION WITH RAPID VENTRICULAR RESPONSE POSSIBLE RIGHT VENTRICULAR CONDUCTION DELAY [RSR (QR) IN V1/V2] CRITICAL TEST RESULT Compared to ECG 02/04/2019 19:20:42 Incomplete right bundle-branch block no longer present T-wave abnormality no longer present Electronically Signed On 03-17-2020 21:24:10 CATHODE MAKER by Jeffery Bonilla M.D. [email or web address]
--- NOTE | 2020-03-16 23:11 | CTR_ITS ---
PROCEDURE INFORMATION: Exam: CT Pelvis Without Contrast; Skeletal Exam date and time: 03/16/2020 12:10 AM Age: 65 years old Clinical indication: Injury or trauma; Blunt trauma (contusions or hematomas); Left; Prior surgery; Surgery type: Colon; Patient HX: Fall yesterday. C/O hip pain. ; Additional info: Fall/ L hip pain TECHNIQUE: Imaging protocol: Computed tomography images of the pelvis without contrast. Exam focused on the skeletal structures. Radiation optimization: All CT scans at this facility use at least one of these dose optimization techniques: automated exposure control; mA and/or kV adjustment per patient size (includes targeted exams where dose is matched to clinical indication); or iterative reconstruction. COMPARISON: CT abdomen pelvis w con* [id number] 10/13/2018 12:35 PM RADIATION DOSE METRICS: Total DLP (mGy-cm): 611.07 FINDINGS: Liver: Small small fatty supraumbilical hernia. Stomach and bowel: Colonic diverticuli noted. No evident pericolic inflammatory change. No findings of abnormal bowel distention. Bones/joints: Unremarkable. No acute fracture. No dislocation. Soft tissues: Unremarkable. CT/CT pelvis wo con [id number] IMPRESSION: No acute findings. Radiation Dose CTDIVOL = (mGy): DLP = 611.07 (mGy-cm)
[2020-03-16 23:19] LABS: Basophils # 0.1 10^3/uL (0.0-0.1); Basophils % 0.6 %; Eosinophils % 0.2 %; Hematocrit 51.2 % (42.0-52.0); Hemoglobin 16.9 g/dL (11.7-16.6); Lymphocytes # 2.1 10^3/uL (0.8-4.8); Lymphocytes % 12.9 %; Mean Corpuscular Hemoglobin 31.3 pg (28.0-34.0); Mean Corpuscular Volume 94.8 fL (80-94); Mean Platelet Volume 11.6 fL (7.4-10.4); Monocytes # 1.3 10^3/uL (0.2-0.9); Monocytes % 7.8 %; Neutrophils # 12.57 10^3/uL (1.8-7.7); Neutrophils % 77.9 %; Nucleated Red Blood Cells % 0 %; Platelet Count 160 10^3/cmm (130-400); Red Cell Distribution Width 11.8 % (12.1-15.1); White Blood Count 16.2 10^3/uL (4.0-10.0)
[2020-03-16 23:21] VITALS: BP 148/110; PULSE 170; RESP 19; TEMP 36.7; O2SAT 94; BMI 39.4
[2020-03-16 23:36] LABS: INR 1.17 (0.8-1.2)
[2020-03-16 23:44] LABS: Alanine Aminotransferase 20 U/L (0-41); Alkaline Phosphatase 95 IU/L (40-130); Aspartate Amino Transferase 22 U/L (0-40); Blood Urea Nitrogen 21 mg/dL (8-23); Carbon Dioxide 24 mmol/L (22-29); Chloride 100 mmol/L (98-107); Globulin 3.9 g/dL (1.3-4.6); Glomerular Filtration Rate 134.8 mL/min (90-130); Glucose 276 mg/dL (65-115); Osmolality Calculated 299 mOsm/kg (285-295); Sodium 138 mmol/L (136-145); Total Bilirubin 1.2 mg/dL (0.15-1.2); Total Protein 7.9 g/dL (6.6-8.7)
[2020-03-17] VITALS (36 sets, daily range): BP systolic 110–161; BP diastolic 82–106; PULSE 97–143; RESP 16–37; TEMP 35.8–37.1; O2SAT 94–98
[2020-03-17] MEDS: sodium chloride 0.9% 1,000 ML 999 ML IV (00:47)
--- NOTE | 2020-03-17 01:46 | PM.HP ---
Providers/Chief Complaint Chief Complaint: LEFT HIP PAIN History of Present Illness Gary Christiansen is a 65 year old male carries history of chronic migraine, atrial fibrillation not a candidate for anticoagulation due to GI bleed underwent colonoscopy which revealed internal hemorrhoids with diverticulosis nonobstructive coronary disease, sleep apnea, obesity, splenic flexure colon adenocarcinoma underwent segmental resection on 07/12 presented today for evaluation of head pain. Patient is stating that at home when he was trying to go to the bathroom he lost his balance and fell on the ground on his hip on Sunday, he is attributing this fall to losing his balance no syncope, seizure-like activities, loss of consciousness, chest pain, palpitations, recent fever, neck pain. He does have chronic back pain for which he goes to Dr. Dennison for injections. Because of worsening pain he decided to come to the hospital for the evaluation. Diagnostics in the ER revealed leukocytosis no signs of sepsis, pelvic CT did not reveal any acute fracture, he was in A. fib RVR 160, he was given Cardizem 30 mg IV push we did not improve his heart rate hence was started on Cardizem drip at the time of my evaluation heart rate was in the 130s he was experiencing hiccups, hemodynamically stable. His Cardizem drip was at 15 mg/h for his hiccups I gave him 1 dose of Reglan Review of Systems Const: Reports: body aches, fatigue and malaise; Denies: fever(s) or chills Eyes: Denies: change in vision ENMT: Denies: throat pain Card: Reports: palpitations, irregular heart rhythm and dyspnea on exertion Resp: Reports: dyspnea GI: Reports: heartburn; Denies: abdominal pain : Denies: flank pain Musc: Denies: neck pain Skin/Breast: Reports: lesions Neuro: Reports: confusion Psych: Reports: depression Endo: Denies: polyuria Kvng/Lymph: Denies: easy bruising All/Imm: Denies: urticaria Medications/Allergies Home Medications Medication Instructions Recorded Confirmed Last Taken Type duloxetine 60 mg capsule,delayed 60 mg PO BID 03/26/19 03/17/20 1 Day Ago History release sprinkle ~03/16/20 metoprolol tartrate 25 mg tablet 12.5 mg PO BID 03/26/19 03/17/20 1 Day Ago History ~03/16/20 topiramate 100 mg capsule 100 mg PO BID each 03/26/19 03/17/20 1 Day Ago History sprinkle,extended release 24 hr ~03/16/20 zonisamide 100 mg capsule 200 mg PO BID 03/26/19 03/17/20 1 Day Ago History ~03/16/20 donepezil 23 mg tablet 23 mg PO DAILY tab 04/16/19 03/17/20 10/01/19 History Lace up ankle brace #1 ea 05/09/19 10/06/19 Unknown Rx memantine 28 mg capsule 28 mg PO DAILY #30 each 05/20/19 03/17/20 1 Day Ago Rx sprinkle,extended release 24hr ~03/16/20 gabapentin 800 mg PO BEDTIME 10/01/19 03/17/20 1 Day Ago History ~03/16/20 ondansetron HCl 4 mg PO Q6H PRN 10/01/19 03/17/20 Unknown History omeprazole 40 mg capsule,delayed 40 mg PO DAILY #30 cap 12/15/19 03/17/20 1 Day Ago Rx release ~03/16/20 simvastatin 80 mg tablet 80 mg PO DAILY 30 Days #30 tab 12/15/19 03/17/20 1 Day Ago Rx ~03/16/20 diltiazem HCl 180 mg 180 mg PO DAILY #90 cap 02/20/20 03/17/20 1 Day Ago Rx capsule,extended release 24 hr ~03/16/20 Allergies Allergy/AdvReac Type Severity Reaction Status Date / Time flu vaccine Allergy Mild ALGY-Redness Uncoded 09/24/19 13:56 of Skin pneumonia vaccine Allergy Mild ALGY-Redness Uncoded 09/24/19 13:56 of Skin PFSH Acute PFSH: Medical History Atrial fibrillation Atrial fibrillation and flutter CHF (congestive heart failure) Chronic migraine Chronic pain syndrome Colon cancer Controlled diabetes mellitus with complication, without long-term current use of insulin COPD (chronic obstructive pulmonary disease) Depression, controlled GI bleed Hyperlipidemia Hypertension Insomnia Memory impairment Obstructive sleep apnea Surgical History S/P arthroscopic surgery of left knee S/P cataract surgery S/P insertion of spinal cord stimulator Family History Other CAD (coronary artery disease) Diabetes Social History Smoking and tobacco status: never smoked Alcohol intake: never History of recent travel: No Vitals/I&O/Wt Last Vital Signs Temp 98.1 F 03/16/20 23:21 Pulse 120 H 03/17/20 01:05 Resp 25 H 03/17/20 01:05 BP 130/99 03/17/20 01:05 Pulse Ox 96 03/17/20 01:05 Weight last 48 hrs Weight 124.738 kg Physical Exam Narrative: EXAM NARRATIVE: Unkept appearance, middle-age male who appears more than stated age, Foul-smelling clothes soiled with urine Variable S1-S2 no active signs of heart failure Patient is constantly experiencing hiccups Abdomen soft nontender bowel sound present Lower extremity without any edema gangrene or ulcer EOMI, PERJOSE Patient seems to be a very poor historian, no apparent gross neurological deficit Skin soiled with urine around his undergarments Poor skin hygiene Flat affect Awake alert oriented x3 GCS 15 Data : 03/16/20 22:43 03/16/20 22:43 A&P Assessment and plan (1) Atrial fibrillation with RVR: Status: Acute (2) Fall: Status: Acute Qualifiers: Encounter type: initial encounter Qualified Code(s): W19.XXXA - Unspecified fall, initial encounter (3) Hip pain: Status: Acute Additional A&P Information AFib with acute RVR heart rate 160 Currently on Cardizem drip running at 10 mg/h hemodynamically stable Awake alert oriented x3 GCS 15 no active chest pain or shortness of breath Not a suitable candidate for anticoagulation because of previous history of GI bleed however recent colonoscopy revealed internal hemorrhoids and diverticulosis, recently has seen cardiology as well who did not recommended adding anticoagulant agent however his hemoglobin stayed stable kindly reevaluate if would benefit from long-term anticoagulation Mechanical fall No hip fracture evident on pelvic CT scan Patient is attributing this fall to lose balance I will check B12 and TSH level Has good sensations of medial side of his thighs, he had urinary retention of 500 mL straight cath x1, not able to move his legs against gravity because of pain, will start him on Decadron and request MRI in the morning to rule out cauda equina, request D-dimer to rule out PE Patient does carries diagnosis of chronic pain syndrome Sepsis Criteria met with tachypnea, tachycardia, leukocytosis, chest x-ray is clear, I have requested urinalysis, he was retaining 500 cc of urine, would request blood culture No source identified yet no signs of meningitis Abdomen soft No signs of cellulitis however skin hygiene is very poor Would start vancomycin and Zosyn Headache: History of migraine, for now I will give him Tylenol and see if that would help him, continue his topiramate Full code Cardiac diet DVT prophylaxis Heparin 5000 units every 8hr Attestations Medical Necessity Statement*: Anticipating stay in the hospital course more than 2 midnights currently need IV antibiotics for sepsis and Cardizem drip for A. fib RVR need to rule out cauda equina syndrome Time Spent in Patient Care: (>than 50% of time spent in counselling and/or direct pt care on unit). 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
[2020-03-17] MEDS: acetaminophen 325 mg Tablet PO (04:16)
[2020-03-17] MEDS: metoprolol tartrate 25 mg Tablet PO ×3 (04:16→17:47)
[2020-03-17] MEDS: heparin 5,000 unit/mL INJ 1 mL 5000 UNIT SUBCUT ×2 (04:18→11:40)
[2020-03-17] MEDS: metoclopramide 5 mg/mL SDV 2 mL IVP (04:18)
--- NOTE | 2020-03-17 04:35 | PC.PHAR ---
Vancomycin is dosed at 1500mg IVPB every 8 hours to produce a predicted trough level of 16.34 (population based pharmacokinetic analysis). A trough level has been ordered from the lab to be obtained before the fourth dose to confirm and adjust if needed. The Zosyn is dosed at 3.375gm IVPB every 8 hours on basis of creatinine clearance of 120.37.
[2020-03-17] MEDS: vancomycin 1,500 MG/300 ML PIGGYBACK 200 MG IV ×2 (04:58→11:40)
[2020-03-17 05:29] LABS: Basophils # 0.1 10^3/uL (0.0-0.1); Basophils % 0.4 %; Hematocrit 50.7 % (42.0-52.0); Hemoglobin 16.2 g/dL (11.7-16.6); Lymphocytes % 5.3 %; Mean Corpuscular Hemoglobin 31.4 pg (28.0-34.0); Mean Corpuscular Volume 98.3 fL (80-94); Mean Platelet Volume 11.3 fL (7.4-10.4); Monocytes # 1.2 10^3/uL (0.2-0.9); Monocytes % 6.7 %; Neutrophils # 15.49 10^3/uL (1.8-7.7); Neutrophils % 86.6 %; Nucleated Red Blood Cells % 0 %; Platelet Count 138 10^3/cmm (130-400); Red Blood Count 5.16 10^6/uL (4.1-5.3); Red Cell Distribution Width 11.9 % (12.1-15.1); White Blood Count 17.9 10^3/uL (4.0-10.0)
[2020-03-17 05:53] LABS: Blood Urea Nitrogen 21 mg/dL (8-23); Calcium 9.4 mg/dL (8.5-10.5); Carbon Dioxide 20 mmol/L (22-29); Chloride 103 mmol/L (98-107); Glomerular Filtration Rate 166.4 mL/min (90-130); Glucose 300 mg/dL (65-115); Osmolality Calculated 300 mOsm/kg (285-295); Sodium 138 mmol/L (136-145)
[2020-03-17 06:03] LABS: Anion Gap 19.5 (5-19); Potassium 4.5 mmol/L (3.5-5.1)
[2020-03-17] MEDS: piperacillin-tazobactam 3.375 GM in sodium chloride 0.9% (plus) 50 ML IV ×3 (06:32→22:05)
[2020-03-17 06:37] LABS: Magnesium 2.1 mg/dL (1.7-2.3); Thyroid Stimulating Hormone 1.17 uIU/mL (0.27-4.20)
--- NOTE | 2020-03-17 07:29 | PC.NURSE ---
late entry, notified Dr Sauer of pt inability to void, straight cath done at 0400 with 500 ml output
--- NOTE | 2020-03-17 07:50 | PC.NURSE ---
patient resting in bed at time of assessment. patient denied any needs at this time.
[2020-03-17 08:34] LABS: D Dimer >= 20.00 ug/mIFEU (0-0.59)
--- NOTE | 2020-03-17 08:50 | PC.NURSE ---
patient needed to urinate. patient stated that he stands up to use the urinal, this nurse attempted to have him stand using a walker and patient was not strong enough. urinal was placed while patient was laying down. when trying to stand up the patient pulled out his IV in his left hand. due to iv being pulled out patient's bed was completely changed. patient voided 150 ml and a new 22 gauge IV was obtained in his right forearm. call light placed within reach. no other needs identified at this time.
[2020-03-17] MEDS: dexamethasone 4 mg Tablet PO ×2 (09:03→14:36)
[2020-03-17] MEDS: duloxetine 60 mg Capsule PO ×2 (09:04→17:47)
[2020-03-17] MEDS: tamsulosin 0.4 mg Capsule PO (09:04)
[2020-03-17] MEDS: atorvastatin 40 mg Tablet PO (09:04)
[2020-03-17] MEDS: pantoprazole DR 40 mg Tablet PO (09:04)
--- NOTE | 2020-03-17 10:37 | PC.PT ---
Spoke with nursing. Gary will be getting an MRI today (chart mentioned ruling out PE and cauda equina). MRI will be 2:30 this afternoon. Will hold off on PT eval until tomorrow pending MRI results.
[2020-03-17 11:22] LABS: Add Urine Microscopic? YES; Bilirubin Urine Neg (Negative); Blood Urine 2+ (Negative); Glucose Urine UA 4+ (Normal); Ketones Urine 1+ (Negative); Leukocyte Esterase Urine 1+ (Negative); Nitrate Urine Negative (Negative); Protein Urine Trace (Negative); Urine Appearance Hazy (CLEAR); Urine Color Yellow (Yellow); Urobilinogen Urine 1 mg/dL (Negative); pH Urine 5 (5-7)
[2020-03-17 11:33] LABS: Add Urine Culture? Yes; Bacteria Urine 1+ /hpf; Squamous Epithelial Cell Urine 0-4 /hpf (0-5); WBC Urine >100 /hpf (0-5)
--- NOTE | 2020-03-17 11:58 | PC.NURSE ---
patient heart rate noted to be over 110 bpm. cardizem was increased per protocol. patient denied any needs at this time. call light within reach.
--- NOTE | 2020-03-17 14:55 | CTR_ITS ---
PROCEDURE INFORMATION: Exam: CT Angiography Chest With Contrast Exam date and time: 03/17/2020 3:30 PM Age: 65 years old Clinical indication: Abnormal findings; Abnormal diagnostic tests; Elevated d-dimer; Prior surgery; Surgery type: Colon; Additional info: Evalute for pe, tachycardia, elevated d dimer, hypoxia TECHNIQUE: Imaging protocol: Computed tomographic angiography of the chest with intravenous contrast. 3D rendering (Not supervised by radiologist): MIP reconstructed images were created by the technologist. Radiation optimization: All CT scans at this facility use at least one of these dose optimization techniques: automated exposure control; mA and/or kV adjustment per patient size (includes targeted exams where dose is matched to clinical indication); or iterative reconstruction. Contrast material: OMNI 350; Contrast volume: 95 ml; Contrast route: INTRAVENOUS (IV); COMPARISON: CTA Chest-Pulmonary Emb [id number] 02/16/2015 1:04 PM RADIATION DOSE METRICS: Total DLP (mGy-cm): 627.98 FINDINGS: Tubes, catheters and devices: A right subclavian catheter is present with the tip in the mid SVC. Lower thoracic intraspinal neural stimulator leads. Pulmonary arteries: Right lower lobe pulmonary embolism, occlusive in the anterior and lateral basilar superior segments. Peripherally occlusive right middle lobe emboli involving the mediolateral segments. Partially occlusive right upper lobe anterior posterior segment pulmonary emboli. Nonocclusive left upper lobe apical and posterior segmental pulmonary emboli. Distal left main pulmonary embolus (be on the upper lobe artery) extending into the lingular and lower lobe pulmonary arteries, with occlusion of the lingular inferior segment. Peripheral embolus extending into the left lower lobe posterior and medial basilar segments without occlusion. Aorta: Mild aortic arch and descending thoracic aortic atherosclerotic calcification without ectasia. Lungs: Bibasilar mild pulmonary subsegmental atelectasis is present. Right lower lobe calcified pulmonary parenchymal granulomas. Pleural space: No pneumothorax. No pleural effusion. Heart: Flattening of the cardiac interventricular septum suggesting elevated right heart pressures. Mediastinal space: Right hilar granulomatous [place] calcifications are present. Lymph nodes: No enlarged lymph nodes. Pancreas: Moderate pancreatic atrophy. Spleen: The spleen demonstrates numerous small calcifications consistent with healed granulomatous disease. Kidneys and ureters: Left renal 3.3 cm probable benign cyst. Bones/joints: Healed anterolateral left 4th through 6th rib fractures. Thoracic spine vertebral body marginal osteophytes are noted at multiple levels. Diffuse osteopenia. Soft tissues: Unremarkable. CT/CT angio chest PE protcl [id number] IMPRESSION: 1. Bilateral pulmonary emboli. 2. Findings suggesting elevated right heart pressures. 3. Left renal probable benign cyst. COMMENTS: Consistent with the [employer]'s Incidental Findings Committee white paper (J Am Blanca Radiol 2018): Any incidental renal lesion less than 1 cm or classified as too small to characterize, or any incidental cystic renal lesion characterized as simple-appearing, is likely benign. No follow-up imaging is recommended for these lesions per consensus recommendations based on imaging criteria. Radiation Dose CTDIVOL = (mGy): DLP = 627.98 (mGy-cm)
--- NOTE | 2020-03-17 14:55 | CTR_ITS ---
PROCEDURE INFORMATION: Exam: CT Lumbar Spine With Contrast Exam date and time: 03/17/2020 3:30 PM Age: 65 years old Clinical indication: Weakness; Prior surgery; Surgery type: Colon, stimulator; Additional info: Cauda equina syndrome TECHNIQUE: Imaging protocol: Computed tomography images of the lumbar spine with intravenous contrast. Radiation optimization: All CT scans at this facility use at least one of these dose optimization techniques: automated exposure control; mA and/or kV adjustment per patient size (includes targeted exams where dose is matched to clinical indication); or iterative reconstruction. Contrast material: OMNI 350; Contrast volume: 95 ml; Contrast route: INTRAVENOUS (IV); COMPARISON: MRI Lumbar Spine w/o [id number] 05/08/2017 11:04 AM RADIATION DOSE METRICS: Total DLP (mGy-cm): 2135.99 FINDINGS: Vertebrae: Diffuse osteopenia. Mild chronic L4 vertebral body compression deformity. Small L2-L3 vertebral body marginal osteophytes. Discs/Spinal canal/Neural foramina: T12-L1 disc calcification without displacement. Central L3-L4 disc protrusion measuring 2.6 mm. No specific root impingement identified. The midline C3-C4 AP thecal sac dimension is 8.7 mm. Kidneys and ureters: Partial duplication of the left renal collecting system with the ureters probably joining at the lower lumbar level. 14 mm left renal benign cyst. Right renal 2.9 cm benign cyst. No specific followup required/recommended. Soft tissues: Unremarkable. CT/CT lumbar spine w con [id number] IMPRESSION: 1. Small L3-L4 central disc protrusion. 2. No specific CT findings associated with cauda equina syndrome identified. Radiation Dose CTDIVOL = (mGy): DLP = 2135.99 (mGy-cm)
--- NOTE | 2020-03-17 14:55 | CTR_ITS ---
PROCEDURE INFORMATION: Exam: CT Thoracic Spine With Contrast Exam date and time: 03/17/2020 3:30 PM Age: 65 years old Clinical indication: Patient HX: Cauda equina syndrome eval for cord compression; Additional info: New le weakness TECHNIQUE: Imaging protocol: Computed tomography images of the thoracic spine with intravenous contrast. Contrast material: OMNI 350; Contrast volume: 95 ml; Contrast route: INTRAVENOUS (IV); COMPARISON: MRI Thoracic Spine w/o* [id number] 06/14/2018 11:24 AM RADIATION DOSE METRICS: Total DLP (mGy-cm): 2395.52 FINDINGS: Tubes, catheters and devices: Lower thoracic intraspinal neural stimulator leads. Vertebrae: Diffuse osteopenia. No destructive bony process identified. Thoracic spine vertebral body marginal osteophytes are noted at multiple levels. Discs/Spinal canal/Neural foramina: No significant disc protrusion. No severe spinal canal stenosis. No significant neural foraminal narrowing. Soft tissues: Unremarkable. Kidneys and ureters: Left renal 13.7 mm cyst. No specific followup required/recommended. CT/CT thoracic spine w con [id number] IMPRESSION: 1. Degenerative changes as above. 2. No acute thoracic spinal bony abnormality identified. 3. Please see the CT chest report of the same date for additional findings. Radiation Dose CTDIVOL = (mGy): DLP = 2395.52 (mGy-cm)
[2020-03-17] MEDS: iohexol 350 mg/mL 100 mL Btl IV (16:17)
--- NOTE | 2020-03-17 16:33 | PM.PN ---
Subjective Subjective: Interval history: Unable to get MRI due to presence of spinal stimulator. CT thoracolumbar spine with contrast has been ordered instead to evaluate for cauda equina syndrome. CTA of the chest additionally added given patient is having persistent A. fib, D-dimer greater than 20. Has been feeling too weak all day, requiring 2 person assist Medications: Reviewed: Yes Vitals/I&O/Wt Last Vital Signs Temp 96.6 F L 03/17/20 14:44 Pulse 130 H 03/17/20 14:44 Resp 16 03/17/20 14:44 BP 129/89 03/17/20 14:44 Pulse Ox 97 03/17/20 14:44 03/17/20 03/17/20 03/17/20 06:59 14:59 22:59 Intake Total 1683.5 / 1683.5 408.167 / 408.167 Output Total 500 / 500 650 / 650 Balance 1183.5 / 1183.5 -241.833 / -241.833 Weight last 48 hrs Weight 101.151 kg Weight 124.738 kg Physical Exam Narrative: EXAM NARRATIVE: GEN: Awake, alert and oriented, overall frail chronically ill-appearing CVS: S1S2 N RS: CTA B/L except crackles over RUL Abd: Soft, nt/nd , bs+ BEEF CATTLE GRAZIER: Data : 03/17/20 04:30 03/17/20 04:30 Micro: Microbiology 03/17/20 07:15 Blood Culture - Preliminary Blood SPECIMEN COLLECTED 03/17/20 07:18 Blood Culture - Preliminary Blood SPECIMEN COLLECTED A&P Assessment and plan (1) Atrial fibrillation with RVR: Status: Acute (2) Fall: Status: Acute Qualifiers: Encounter type: initial encounter Qualified Code(s): W19.XXXA - Unspecified fall, initial encounter (3) Hip pain: Status: Acute Additional A&P Information AFib with acute RVR heart rate 160 Currently on Cardizem drip running at 15 mg/h Start overlap with Cardizem 60 mg p.o. every 6 hours, continue metoprolol 25 mg p.o. twice daily Awake alert oriented x3 GCS 15, however overall very frail appearing no active chest pain or shortness of breath However D-dimer noted to be greater than 20, check CTA of the chest to evaluate for PE Previously not been been on anticoagulation because of previous history of GI bleed, recent colonoscopy revealed internal hemorrhoids and diverticulosis. Mechanical fall No hip fracture evident on pelvic CT scan Patient is attributing this fall to lose balance he had urinary retention of 500 mL straight cath x1, not able to move his legs against gravity, need to rule out to rule out cauda equina, possibility of metastatic disease to the spine given known adenocarcinoma of the colon history. Patient was unable to get MRI, will order CT with contrast of the thoracolumbar spine Sepsis Criteria met with tachypnea, tachycardia, leukocytosis, chest x-ray is clear, UA with greater than 100 WBC, positive leuk esterase, concern for UTI, currently on empiric Zosyn which can continue. To discontinue vancomycin. Blood and urine culture pending. CT chest will additionally evaluate for any underlying consolidation. No abdominal symptoms at this time. 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
--- NOTE | 2020-03-17 16:51 | ECG_ITS ---
[facility] Test Date: 2020-03-17 Pat Name: Gary Christiansen Department: Room: 106 Gender: Male Entertainment Manager: : 1955 Requested By: Adina Coleman Order Number: [id number] Baldomero MD: Jeffery Bonilla M.D. Measurements Intervals [place] Rate: 116 P: [place]: QRS: 53 QRSD: 93 T: 23 QT: 316 QTc: 439 Interpretive Statements ATRIAL FIBRILLATION WITH RAPID VENTRICULAR RESPONSE INCOMPLETE RIGHT BUNDLE BRANCH BLOCK [90+ ms QRS DURATION, TERMINAL R IN V1/V2, 40+ ms S IN I/aVL/V4/V5/V6] NONSPECIFIC T-WAVE ABNORMALITY ABNORMAL RHYTHM ECG Compared to ECG 03/16/2020 23:15:56 Incomplete right bundle-branch block now present T-wave abnormality now present Electronically Signed On 03-17-2020 21:28:29 RACK PUSHER by Jeffery Bonilla M.D. [id number]
--- NOTE | 2020-03-17 17:17 | PC.RESP ---
Pulmonary Rehab information sent to patient.
[2020-03-17] MEDS: dilTIAZem 60 mg Tablet PO ×2 (17:46→22:04)
[2020-03-17] MEDS: FUROsemide 10 mg/mL SDV 2mL 20 MG IVP (17:46)
[2020-03-17] MEDS: metoprolol tartrate 1 mg/1 mL SDV 5 mL 5 MG IV (17:46)
[2020-03-17] MEDS: enoxaparin 100 mg/mL Syringe SUBCUT (17:47)
[2020-03-17 18:11] LABS: Troponin(5th) Baseline 8 ng/L (0-15)
--- NOTE | 2020-03-17 18:51 | ECG_ITS ---
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 Measurements Intervals [place] Rate: 102 P: [place]: QRS: 50 QRSD: 97 T: 36 QT: 318 QTc: 416 Interpretive Statements ATRIAL FIBRILLATION WITH RAPID VENTRICULAR RESPONSE INCOMPLETE RIGHT BUNDLE BRANCH BLOCK [90+ ms QRS DURATION, TERMINAL R IN V1/V2, 40+ ms S IN I/aVL/V4/V5/V6] NONSPECIFIC T-WAVE ABNORMALITY ABNORMAL RHYTHM ECG Compared to ECG 03/17/2020 17:45:04 No significant changes Electronically Signed On 03-17-2020 21:32:37 TAR DISTILLATION SUPERVISOR by Jeffery Bonilla M.D. [email or web address] medical [email or web address] Healthcle[id number]
[2020-03-17 19:42] LABS: Troponin 5 2HR 8.36 ng/L (0-15); Troponin 5 2HR Delta 0.36 ABS# (0-10)
--- NOTE | 2020-03-17 22:51 | ECG_ITS ---
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 Measurements Intervals [place] Rate: 99 P: [place]: QRS: 45 QRSD: 98 T: 24 QT: 393 QTc: 506 Interpretive Statements ATRIAL FIBRILLATION WITH ABERRANT CONDUCTION OR VENTRICULAR PREMATURE COMPLEXES NONSPECIFIC T-WAVE ABNORMALITY ABNORMAL RHYTHM ECG Compared to ECG 03/17/2020 19:10:31 Ventricular premature complex(es) now present Aberrant conduction of supraventricular beat(s) now present Incomplete right bundle-branch block no longer present T-wave abnormality still present Electronically Signed On 03-21-2020 10:10:22 TRANSFER AGENT by Yasmin Louis M.D. [id number]
[2020-03-18] VITALS (26 sets, daily range): BP systolic 116–139; BP diastolic 80–93; PULSE 89–116; RESP 16–39; TEMP 36.2–37.3; O2SAT 92–97
[2020-03-18] MEDS: dilTIAZem 60 mg Tablet PO ×4 (04:44→22:40)
[2020-03-18] MEDS: enoxaparin 100 mg/mL Syringe SUBCUT ×2 (04:45→16:38)
[2020-03-18 04:48] LABS: Basophils % 0.2 %; Hematocrit 47.1 % (42.0-52.0); Hemoglobin 15.3 g/dL (11.7-16.6); Lymphocytes # 0.9 10^3/uL (0.8-4.8); Lymphocytes % 6.4 %; Mean Corpuscular HGB Conc 32.5 g/dL (30.0-36.0); Mean Corpuscular Hemoglobin 31.5 pg (28.0-34.0); Mean Corpuscular Volume 96.9 fL (80-94); Mean Platelet Volume 11.4 fL (7.4-10.4); Monocytes # 0.7 10^3/uL (0.2-0.9); Monocytes % 4.8 %; Neutrophils # 12.16 10^3/uL (1.8-7.7); Neutrophils % 88.1 %; Nucleated Red Blood Cells % 0 %; Platelet Count 135 10^3/cmm (130-400); Red Blood Count 4.86 10^6/uL (4.1-5.3); Red Cell Distribution Width 11.6 % (12.1-15.1); White Blood Count 13.8 10^3/uL (4.0-10.0)
--- NOTE | 2020-03-18 05:00 | USCV_ITS ---
Gary Christiansen Age: 65 Gender: M : 1955 Exam Date: 03/18/2020 06:35 Ordering Phys: Adina Coleman MD Technologist: Alyx Bearden [place] [facility] [place]ication: EVAL FOR RIGHT HEART STRAIN BP: / HR: Rhythm: Sinus Technical Quality: Adequate MEASUREMENTS (Male / Female) Normal Values 2D ECHO LV Diastolic Diameter PLAX 3.8 cm 4.2 - 5.9 / 3.9 - 5.3 cm LV Systolic Diameter PLAX 2.5 cm LV Chamber Size 3.0 cm IVS Diastolic Thickness 1.5 cm 0.6 - 1.0 / 0.6 - 0.9 cm IVS Systolic Thickness 1.7 cm LVPW Diastolic Thickness 1.8 cm 0.6 - 1.0 / 0.6 - 0.9 cm LVPW Systolic Thickness 1.8 cm RV Chamber Size 3.5 cm LVOT Diameter 2.1 cm LV Ejection Fraction 2D Teich 64.2 % LV Ejection Fraction MOD 2C 52.1 % LV Ejection Fraction 2C AL 50.6 % LA Diameter 4.1 cm LA Width 4.0 cm LA Height 4.3 cm RA Width 2.3 cm RA Height 3.9 cm Aorta at Sinotubular Diameter 3.5 cm M-MODE LV Diastolic Diameter MM 5.1 cm 4.2 - 5.9 / 3.9 - 5.3 cm LV Systolic Diameter MM 2.3 cm LV Ejection Fraction MM Teich 84.6 % IVS Diastolic Thickness MM 0.8 cm 0.6 - 1.0 / 0.6 - 0.9 cm IVS Systolic Thickness MM 1.5 cm LVPW Diastolic Thickness MM 1.4 cm 0.6 - 1.0 / 0.6 - 0.9 cm LVPW Systolic Thickness MM 1.6 cm Aortic Annulus Diameter 3.9 cm LA Ao Ratio MM 1.2 MV E Point Septal Separation 1.0 cm DOPPLER AV Peak Velocity 135.0 cm/s LVOT Peak Velocity 101.0 cm/s AV Area Cont Eq vti 2.6 cm squared AV Area Cont Eq pk 2.5 cm squared MV Area PHT 5.8 cm squared Mitral E to A Ratio 2.2 MV E' Velocity 53.5 cm/s Mitral E to MV E' Ratio 5.1 Mitral E to LV E' Lateral Ratio 4.7 Mitral E to LV E' Septal Ratio 5.6 TR Peak Velocity 192.0 cm/s TR Peak Gradient 14.7 mmHg TV Peak E Velocity 64.0 cm/s Right Atrial Pressure 3.0 mmHg Pulmonary Artery Systolic Pressu 17.7 mmHg FINDINGS Left Ventricle Normal left ventricular size and systolic function with no regional wall motion abnormalities. LVEF is 55 to 60%. Normal diastolic filling pattern. Right Ventricle The right ventricle is not well-visualized. Grossly RV seems to be normal in size and function. Right Atrium The right atrium is normal in size. Left Atrium The left atrium is normal in size. Mitral Valve Grossly normal. No significant mitral regurgitation or stenosis is noted. Aortic Valve Not well-visualized. There is no aortic stenosis or aortic regurgitation. Tricuspid Valve Not well-visualized. No significant tricuspid regurgitation is noted. Inadequate TR jet to calculate RVSP. Pulmonic Valve Not well-visualized. Pericardium Normal pericardium without effusion. Aorta Aorta is not well-visualized. CONCLUSIONS This is technically very limited study. Echo contrast was used to enhance cardiac structures. LV systolic function is normal with EF of 55 to 60%. Normal diastolic function. Right ventricle is not well visualized. Grossly RV seems to be normal in size and function however complete assessment was not possible. Limited visualization of valvular structures. No gross abnormalities. Compared to prior study from 07/22/2018 no significant changes are noted. Paulino Sesay MD (Electronically Signed) Final Date: 18 March 2020 16:37 S
[2020-03-18 05:12] LABS: Alanine Aminotransferase 18 U/L (0-41); Albumin Level 3.7 g/dL (3.5-5.2); Alkaline Phosphatase 86 IU/L (40-130); Anion Gap 16.6 (5-19); Aspartate Amino Transferase 21 U/L (0-40); Blood Urea Nitrogen 23 mg/dL (8-23); Calcium 9.6 mg/dL (8.5-10.5); Carbon Dioxide 26 mmol/L (22-29); Chloride 99 mmol/L (98-107); Globulin 3.8 g/dL (1.3-4.6); Glomerular Filtration Rate 166.4 mL/min (90-130); Glucose 296 mg/dL (65-115); Osmolality Calculated 301 mOsm/kg (285-295); Potassium 3.6 mmol/L (3.5-5.1); Sodium 138 mmol/L (136-145); Total Bilirubin 0.8 mg/dL (0.15-1.2); Total Protein 7.5 g/dL (6.6-8.7)
[2020-03-18 05:15] LABS: Vancomycin Trough 6.3 ug/mL (10-15)
[2020-03-18] MEDS: piperacillin-tazobactam 3.375 GM in sodium chloride 0.9% (plus) 50 ML IV ×3 (06:09→22:42)
[2020-03-18] MEDS: perflutren protein-a microsphr 0.22 mg/mL SDV 3 mL IV (07:47)
--- NOTE | 2020-03-18 08:04 | PC.PT ---
Will continue to hold evaluation until MRI is completed to rule out Cauda Equina and PE.
[2020-03-18] MEDS: cyclobenzaprine 10 mg Tablet 5 MG PO ×2 (09:09→15:00)
[2020-03-18] MEDS: duloxetine 60 mg Capsule PO ×2 (09:10→17:37)
[2020-03-18] MEDS: metoprolol tartrate 25 mg Tablet PO ×2 (09:10→17:39)
[2020-03-18] MEDS: atorvastatin 40 mg Tablet PO (09:10)
[2020-03-18] MEDS: pantoprazole DR 40 mg Tablet PO ×2 (09:10→17:37)
[2020-03-18] MEDS: tamsulosin 0.4 mg Capsule PO (09:11)
[2020-03-18] MEDS: lidocaine 5% Patch 1 PATCH TOPICAL ×2 (09:11→21:01)
--- NOTE | 2020-03-18 11:20 | PC.CHAP ---
Pastoral Care Encounter/Spiritual Assessment Type of Contact [X] Declined prepared foods supervisor visit [] Patient/Family/Request visit [] Outpatient visit [] Follow-up visit [] Physician referral [] Code/Alert [] Routine visit [] Staff referral [] Actively dying [] Patient sleeping [] Family support [] [] Out of room [] Palliative care [] [] Receiving care in room [] Pre-surgical visit [] Trauma [] Long length of stay [] ICU visit [] Other: Relational/Emotional Strength [] Patient feels connected with others/family/visitors/staff [] Distress [] Loneliness/isolation [] Abandonment Spirituality of Patient [] Person of Grisel [] Attends Amish of their Grisel [] Believes in Prayer [] Reads Bible or Baptist materials [] There are Spiritual issues to be addressed Wheel Shop Supervisor Interventions [] Prayer [] Active listening [] Non-anxious presence [] Spiritual/emotional support [] Crisis/trauma care [] Spiritual counseling [] Bereavement support [] Provided bereavement packet [] Provided Bible/devotional materials [] Provided toy/stuffed animal, coloring book to patient or family member [] Provided Communion [] Anointing/[place] [] Salvation [] Completed spiritual assessment [] Other: Impact on Illness or Injury [] Angry [] Fearful [] Anxious [] Often cries [] Exhaustion [] Unable to work [] Unable to attend zoroastrianism [] Unable to walk/stand [] Unable to read [] Unable to drive [] Unable to eat/drink [] Unable to sleep [] Unable to be with family [] Patient intubated [] Other: Summary Declined prepared foods supervisor visit Time spent with patient 5 mins
[2020-03-18 11:34] LABS: Glucose Point of Care 258 mg/dL (70-110)
--- NOTE | 2020-03-18 14:11 | PC.OT ---
Will hold evaluation due to PE.
[2020-03-18] MEDS: acetaminophen 325 mg Tablet PO (16:38)
[2020-03-18] MEDS: baclofen 10 mg Tablet PO ×2 (16:39→20:56)
[2020-03-18 17:19] LABS: Glucose Point of Care 263 mg/dL (70-110)
--- NOTE | 2020-03-18 17:48 | PM.PN ---
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, he is quite surprised when I tell him he has bilateral extensive pulmonary emboli that are occlusive in with right heart strain, currently not having chest pain, no shortness of breath, no palpitations Vitals/I&O/Wt Last Vital Signs Temp 98.7 F 03/18/20 12:00 Pulse 115 H 03/18/20 16:00 Resp 24 H 03/18/20 16:00 BP 139/93 03/18/20 16:00 Pulse Ox 94 03/18/20 16:00 03/18/20 03/18/20 03/18/20 06:59 14:59 22:59 Intake Total 1017 / 1880.500 522 / 522 222 / 744 Output Total 700 / 3125 150 / 150 200 / 350 Balance 317 / -1244.500 372 / 372 22 / 394 Weight last 48 hrs Weight 101.151 kg Weight 124.738 kg Physical Exam Const: COMMON NORMALS: no acute distress and patient oriented x3 HENMT: COMMON NORMALS: normocephalic HEAD & SCALP: normocephalic Neck/C-Spine: COMMON NORMALS: no JVD Resp: COMMON NORMALS: normal respiratory effort, No retractions, No use of accessory muscles and clear to auscultation bilaterally AUSCULTATION: clear to auscultation bilaterally Cardio: COMMON NORMALS: no JVD, regular rate, regular rhythm, S1 normal heart sound present and S2 normal heart sound present RATE: regular rate RHYTHM: regular rhythm HEART SOUNDS: S1 normal heart sound present and S2 normal heart sound present GI: COMMON NORMALS: Normal to inspection, nondistended, normoactive bowel sounds present, Soft to palpation, non-tender, No hepatosplenomegaly present, no masses and no bruits PALPATION: Yes Soft to palpation and Yes No hepatosplenomegaly present Extremity: COMMON NORMALS: capillary refill normal, no clubbing, cyanosis or edema, no calf tenderness and no pedal edema Neuro: COMMON NORMALS: patient oriented x3 Psych: COMMON NORMALS: mental status grossly normal Data : 03/18/20 04:04 03/18/20 04:04 Micro: Microbiology 03/17/20 09:07 Urine Culture - Preliminary Urine,Clean Catch 03/17/20 07:15 Blood Culture - Preliminary Blood NEGATIVE TO DATE 03/17/20 07:18 Blood Culture - Preliminary Blood NEGATIVE TO DATE A&P Assessment and plan (1) Atrial fibrillation with RVR: Status: Acute (2) Fall: Status: Acute Qualifiers: Encounter type: initial encounter Qualified Code(s): W19.XXXA - Unspecified fall, initial encounter (3) Hip pain: Status: Acute (4) Bilateral pulmonary embolism: Status: Acute (5) GI bleed: Status: Acute (6) Physical deconditioning: Status: Acute (7) Acute respiratory failure with hypoxia: Status: Acute Additional A&P Information Acute respiratory failure with hypoxia secondary to extensive bilateral pulmonary emboli, with evidence of occlusion, with evidence of right heart strain Pulmonary arteries: Right lower lobe pulmonary embolism, occlusive in the anterior and lateral basilar superior segments. Peripherally occlusive right middle lobe emboli involving the mediolateral segments. Partially occlusive right upper lobe anterior posterior segment pulmonary emboli. Nonocclusive left upper lobe apical and posterior segmental pulmonary emboli. Distal left main pulmonary embolus (be on the upper lobe artery) extending into the lingular and lower lobe pulmonary arteries, with occlusion of the lingular inferior segment. Peripheral embolus extending into the left lower lobe posterior and medial basilar segments without occlusion. Aorta: Mild aortic arch and descending thoracic aortic atherosclerotic calcification without ectasia. -echo This is technically very limited study. Echo contrast was used to enhance cardiac structures. LV systolic function is normal with EF of 55 to 60%. Normal diastolic function. Right ventricle is not well visualized. Grossly RV seems to be normal in size and function however complete assessment was not possible. Limited visualization of valvular structures. No gross abnormalities. PLAN: -On oxygen therapy -Therapeutic Lovenox -We will order bilateral extremity ultrasounds -Has a history of GI bleeds which I feel are likely secondary to patient's splenic flexure adenocarcinoma, as patient started to have GI bleeds was on anticoagulation for atrial fibrillation, anticoagulation was held, then had a colonoscopy then found to have mass, then had surgical resection -Will monitor hemoglobin closely, monitor hemodynamics AFib with acute RVR with Cardizem 60 mg p.o. every 6 hours, continue metoprolol 25 mg p.o. twice daily Awake alert oriented x3 GCS 15, however overall very frail appearing no active chest pain or shortness of breath However D-dimer noted to be greater than 20, check CTA of the chest to evaluate for PE Currently on Cardizem, metoprolol Therapeutic Lovenox Mechanical fall No hip fracture evident on pelvic CT scan Patient is attributing this fall to lose balance he had urinary retention of 500 mL straight cath x1, not able to move his legs against gravity, need to rule out to rule out cauda equina, possibility of metastatic disease to the spine given known adenocarcinoma of the colon history. Patient was unable to get MRI, will order CT with contrast of the thoracolumbar spine L3, L4 disc protrusion Sepsis Criteria met with tachypnea, tachycardia, leukocytosis, chest x-ray is clear, UA with greater than 100 WBC, positive leuk esterase, concern for UTI, currently on empiric Zosyn which can continue. discontinue vancomycin. Blood and urine culture pending. CT chest negative for consolidation. No abdominal symptoms at this time. Renal ultrasound to evaluate for any hydronephrosis Full code Cardiac diet DVT prophylaxis therapeutic Lovenox Attestations Medical Necessity Statement*: Patient requires hospitalization for acute respiratory failure secondary to A. 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
[2020-03-18 20:45] LABS: Glucose Point of Care 259 mg/dL (70-110)
[2020-03-18] MEDS: gabapentin 300 mg Capsule PO (20:56)
[2020-03-19] VITALS (30 sets, daily range): BP systolic 109–130; BP diastolic 68–93; PULSE 87–110; RESP 19–62; TEMP 36.6–36.8; O2SAT 88–98
[2020-03-19] MEDS: dilTIAZem 60 mg Tablet PO ×4 (04:17→23:43)
[2020-03-19] MEDS: enoxaparin 100 mg/mL Syringe SUBCUT ×2 (04:19→16:27)
[2020-03-19 05:42] LABS: Basophils % 0.1 %; Hematocrit 42.3 % (42.0-52.0); Hemoglobin 14.2 g/dL (11.7-16.6); Lymphocytes # 1.4 10^3/uL (0.8-4.8); Lymphocytes % 11.5 %; Mean Corpuscular HGB Conc 33.6 g/dL (30.0-36.0); Mean Corpuscular Hemoglobin 31.4 pg (28.0-34.0); Mean Corpuscular Volume 93.6 fL (80-94); Mean Platelet Volume 11.2 fL (7.4-10.4); Monocytes # 0.8 10^3/uL (0.2-0.9); Monocytes % 6.9 %; Neutrophils # 9.69 10^3/uL (1.8-7.7); Neutrophils % 80.9 %; Nucleated Red Blood Cells % 0 %; Platelet Count 125 10^3/cmm (130-400); Red Blood Count 4.52 10^6/uL (4.1-5.3); Red Cell Distribution Width 11.4 % (12.1-15.1)
[2020-03-19 06:15] LABS: Alanine Aminotransferase 14 U/L (0-41); Albumin Level 3.3 g/dL (3.5-5.2); Alkaline Phosphatase 70 IU/L (40-130); Anion Gap 15.3 (5-19); Aspartate Amino Transferase 18 U/L (0-40); Blood Urea Nitrogen 20 mg/dL (8-23); Calcium 9.4 mg/dL (8.5-10.5); Carbon Dioxide 27 mmol/L (22-29); Chloride 99 mmol/L (98-107); Globulin 3.5 g/dL (1.3-4.6); Glomerular Filtration Rate 166.4 mL/min (90-130); Glucose 220 mg/dL (65-115); Magnesium 1.8 mg/dL (1.7-2.3); NT Pro B Type Natriuretic Pept 160 pg/mL (0-125); Osmolality Calculated 295 mOsm/kg (285-295); Phosphorus 1.6 mg/dL (2.5-4.5); Potassium 3.3 mmol/L (3.5-5.1); Sodium 138 mmol/L (136-145); Total Bilirubin 0.6 mg/dL (0.15-1.2); Total Protein 6.8 g/dL (6.6-8.7)
[2020-03-19] MEDS: piperacillin-tazobactam 3.375 GM in sodium chloride 0.9% (plus) 50 ML IV (06:22)
[2020-03-19 06:40] LABS: Glucose Point of Care 214 mg/dL (70-110)
--- NOTE | 2020-03-19 07:00 | XRR_ITS ---
PROCEDURE INFORMATION: Exam: XR Chest, 1 View Exam date and time: 03/19/2020 6:12 AM Age: 65 years old Clinical indication: Shortness of breath; Additional info: SOB TECHNIQUE: Imaging protocol: XR of the chest Views: Frontal portable upright view of the chest. COMPARISON: CR XR chest 1V portable [id number] 03/16/2020 11:03 PM FINDINGS: Tubes, catheters and devices: EKG leads are present overlying the chest. A right subclavian catheter is present with the tip in the mid SVC. Lower thoracic intraspinal neural stimulator leads. Lungs: The lungs are clear bilaterally. The pulmonary vasculature is normal. Pleural space: No pleural effusion. No pneumothorax. Heart/Mediastinum: The heart is normal in size and contour. Mediastinum: Stable. Vasculature: Mild aortic arch atherosclerotic calcification without ectasia. Mild tortuosity of the upper descending thoracic aorta. Bones/joints: Stable. XR/XR chest 1V portable [id number] IMPRESSION: No acute cardiopulmonary abnormality identified.
[2020-03-19] MEDS: duloxetine 60 mg Capsule PO ×2 (08:06→18:22)
[2020-03-19] MEDS: pantoprazole DR 40 mg Tablet PO ×2 (08:06→18:22)
[2020-03-19] MEDS: atorvastatin 40 mg Tablet PO (08:07)
[2020-03-19] MEDS: baclofen 10 mg Tablet PO (08:07)
[2020-03-19] MEDS: metoprolol tartrate 25 mg Tablet PO ×2 (08:07→18:22)
[2020-03-19] MEDS: tamsulosin 0.4 mg Capsule PO (08:07)
[2020-03-19] MEDS: gabapentin 300 mg Capsule PO (08:13)
[2020-03-19] MEDS: lidocaine 5% Patch 1 PATCH TOPICAL (09:24)
[2020-03-19 09:35] LABS: ABG PCO2 40.7 mmHg (35-45); ABG PH Result 7.46 (7.35-7.45); Arterial Blood Gas Hematocrit 43.7 % (42-52); Base Excess ABG 4.6 mmol/L (-2.0-2.0); Blood Gas Allen Test Pos; Blood Gas Operator Identificat BROMA; Blood Gas Sample Site Radial, left; Blood Gas Sample Type Arterial; HCO3 ABG 28.9 mmol/L (22-26); Oxygen Device ROOM AIR; PO2 ABG 73.8 mmHg (80.0-100.0)
--- NOTE | 2020-03-19 10:36 | PC.OT ---
Attempted OT Evaluation at 10:00 am. Discussed with Nurse. Nurse requested to hold theraoy at this time due to patient is extremely groggy. Will attempt in PM if schedule permits
[2020-03-19 11:09] LABS: Glucose Point of Care 208 mg/dL (70-110)
[2020-03-19] MEDS: acetaminophen 325 mg Tablet PO ×2 (16:29→23:48)
[2020-03-19 16:33] LABS: Glucose Point of Care 306 mg/dL (70-110)
--- NOTE | 2020-03-19 17:26 | P.PN_ITS ---
Subjective Subjective: Interval history: This morning patient was quite somnolent, he received gabapentin and baclofen for his hiccups, was arousable, his ABG did not show significant hypoxia or hypercarbia, patient was examined multiple times throughout the day, he was seen with physical therapy, ambulating, he he just feels weak, they recommend long-term placement Medications: Reviewed: Yes Vitals/I&O/Wt Last Vital Signs Temp 97.8 F 03/19/20 10:47 Pulse 99 03/19/20 15:59 Resp 28 H 03/19/20 15:59 BP 120/68 03/19/20 15:59 Pulse Ox 93 03/19/20 10:53 03/19/20 03/19/20 03/19/20 06:59 14:59 22:59 Intake Total 291 / 1085 118 / 118 Balance 291 / 735 118 / 118 Physical Exam Const: COMMON NORMALS: no acute distress and patient oriented x3 HENMT: COMMON NORMALS: normocephalic HEAD & SCALP: normocephalic Neck/C-Spine: COMMON NORMALS: no JVD Resp: COMMON NORMALS: normal respiratory effort, No retractions, No use of accessory muscles and clear to auscultation bilaterally AUSCULTATION: clear to auscultation bilaterally Cardio: COMMON NORMALS: no JVD, regular rate, regular rhythm, S1 normal heart sound present and S2 normal heart sound present RATE: regular rate RHYTHM: regular rhythm HEART SOUNDS: S1 normal heart sound present and S2 normal heart sound present GI: COMMON NORMALS: Normal to inspection, nondistended, normoactive bowel sounds present, Soft to palpation, non-tender, No hepatosplenomegaly present, no masses and no bruits PALPATION: Yes Soft to palpation and Yes No hepatosplenomegaly present Extremity: COMMON NORMALS: capillary refill normal, no clubbing, cyanosis or edema, no calf tenderness and no pedal edema Neuro: COMMON NORMALS: patient oriented x3 Psych: COMMON NORMALS: mental status grossly normal Data : 03/19/20 05:26 03/19/20 05:26 Micro: Microbiology 03/17/20 09:07 Urine Culture - Final Urine,Clean Catch A&P Assessment and plan (1) Atrial fibrillation with RVR: Status: Acute (2) Fall: Status: Acute Qualifiers: Encounter type: initial encounter Qualified Code(s): W19.XXXA - Un specified fall, initial encounter (3) Hip pain: Status: Acute (4) Bilateral pulmonary embolism: Status: Acute (5) GI bleed: Status: Acute (6) Physical deconditioning: Status: Acute (7) Acute respiratory failure with hypoxia: Status: Acute Additional A&P Information Somnolence: Likely multifactorial from gabapentin, baclofen, patient's home medications of Cymbalta, memantine, Topamax, zonisamide -Stop gabapentin and baclofen Intractable hiccups -Cannot tolerate gabapentin baclofen due to somnolence -Try scheduled Reglan 5 mg every 6 hours Acute respiratory failure with hypoxia secondary to extensive bilateral pulmonary emboli, with evidence of occlusion, with evidence of right heart strain Pulmonary arteries: Right lower lobe pulmonary embolism, occlusive in the anterior and lateral basilar superior segments. Peripherally occlusive right middle lobe emboli involving the mediolateral segments. Partially occlusive right upper lobe anterior posterior segment pulmonary emboli. Nonocclusive left upper lobe apical and posterior segmental pulmonary emboli. Distal left main pulmonary embolus (be on the upper lobe artery) extending into the lingular and lower lobe pulmonary arteries, with occlusion of the lingular inferior segment. Peripheral embolus extending into the left lower lobe posterior and medial basilar segments without occlusion. Aorta: Mild aortic arch and descending thoracic aortic atherosclerotic calcification without ectasia. -echo This is technically very limited study. Echo contrast was used to enhance cardiac structures. LV systolic function is normal with EF of 55 to 60%. Normal diastolic function. Right ventricle is not well visualized. Grossly RV seems to be normal in size and function however complete assessment was not possible. Limited visualization of valvular structures. No gross abnormalities. PLAN: -On oxygen therapy -Therapeutic Lovenox -We will order bilateral extremity ultrasounds -Has a history of GI bleeds which I feel are likely secondary to patient's splenic flexure adenocarcinoma, as patient started to have GI bleeds was on anticoagulation for atrial fibrillation, anticoagulation was held, then had a colonoscopy then found to have mass, then had surgical resection -Will monitor hemoglobin closely, monitor hemodynamics AFib with acute RVR with Cardizem 60 mg p.o. every 6 hours, continue metoprolol 25 mg p.o. twice daily Awake alert oriented x3 GCS 15, however overall very frail appearing no active chest pain or shortness of breath However D-dimer noted to be greater than 20, check CTA of the chest to evaluate for PE Currently on Cardizem, metoprolol Therapeutic Lovenox Mechanical fall No hip fracture evident on pelvic CT scan Patient is attributing this fall to lose balance he had urinary retention of 500 mL straight cath x1, not able to move his legs against gravity, need to rule out to rule out cauda equina, possibility of metastatic disease to the spine given known adenocarcinoma of the colon history. Patient was unable to get MRI, will order CT with contrast of the thoracolumbar spine L3, L4 disc protrusion Sepsis Criteria met with tachypnea, tachycardia, leukocytosis, chest x-ray is clear, UA with greater than 100 WBC, positive leuk esterase, concern for UTI, discontinue Zosyn. discontinue vancomycin. Blood and urine culture negative. CT chest negative for consolidation. No abdominal symptoms at this time. Renal ultrasound to evaluate for any hydronephrosis Full code Cardiac diet DVT prophylaxis therapeutic Lovenox Patient require long-term placement Attestations Medical Necessity Statement*: Patient requires hospitalization, for acute respiratory failure secondary bilateral pulmonary emboli, and significant deconditioning, will require long-term placement Coding Level of Care Code Acute Agricultural Produ[employer] for Chg Fwd Diagnoses Atrial fibrillation with RVR I48.91 Fall W19.XXXA Encounter type: initial encounter Hip pain M25.559 Bilateral pulmonary embolism I26.99 GI bleed K92.2 Physical deconditioning R53.81 Acute respiratory failure with hypoxia J96.01
--- NOTE | 2020-03-19 18:02 | USR_ITS ---
PROCEDURE INFORMATION: Exam: US Duplex Lower Extremity Veins, Bilateral Exam date and time: 03/19/2020 5:36 AM Age: 65 years old Clinical indication: Other: Pe TECHNIQUE: Imaging protocol: Real-time duplex ultrasound of the extremities with 2-D torres scale, color Doppler flow and spectral waveform analysis with image documentation. Complete exam focused on the bilateral lower extremity veins. COMPARISON: No relevant prior studies available. FINDINGS: Right deep veins: Unremarkable. The common femoral, femoral, proximal profunda femoral and popliteal veins are patent without thrombus. Normal Doppler waveforms. Normal compressibility and/or augmentation response. Right superficial veins: Saphenofemoral junction is patent without thrombus. Left deep veins: Unremarkable. The common femoral, femoral, proximal profunda femoral and popliteal veins are patent without thrombus. Normal Doppler waveforms. Normal compressibility and/or augmentation response. Left superficial veins: Saphenofemoral junction is patent without thrombus. Soft tissues: Unremarkable. US/[place] [id number] IMPRESSION: No evidence of deep vein thrombosis.
[2020-03-19] MEDS: metoclopramide oral liquid 5 mg/5 mL (ml) PO ×2 (18:23→23:43)
[2020-03-19 21:53] LABS: Glucose Point of Care 240 mg/dL (70-110)
[2020-03-20] VITALS (21 sets, daily range): BP systolic 110–133; BP diastolic 68–92; PULSE 61–116; RESP 19–43; TEMP 36.6–37.1; O2SAT 79–98
[2020-03-20 04:29] LABS: Basophils % 0.2 %; Eosinophils # 0.1 10^3/uL (0.0-0.8); Eosinophils % 0.7 %; Hematocrit 41.5 % (42.0-52.0); Hemoglobin 13.6 g/dL (11.7-16.6); Lymphocytes # 1.7 10^3/uL (0.8-4.8); Lymphocytes % 18.6 %; Mean Corpuscular HGB Conc 32.8 g/dL (30.0-36.0); Mean Corpuscular Hemoglobin 30.8 pg (28.0-34.0); Mean Corpuscular Volume 93.9 fL (80-94); Monocytes # 0.7 10^3/uL (0.2-0.9); Monocytes % 7.7 %; Neutrophils # 6.39 10^3/uL (1.8-7.7); Neutrophils % 72.2 %; Nucleated Red Blood Cells % 0 %; Platelet Count 128 10^3/cmm (130-400); Red Blood Count 4.42 10^6/uL (4.1-5.3); Red Cell Distribution Width 11.4 % (12.1-15.1); White Blood Count 8.9 10^3/uL (4.0-10.0)
[2020-03-20 04:50] LABS: Alanine Aminotransferase 15 U/L (0-41); Albumin Level 3.2 g/dL (3.5-5.2); Alkaline Phosphatase 69 IU/L (40-130); Anion Gap 13.3 (5-19); Aspartate Amino Transferase 18 U/L (0-40); Blood Urea Nitrogen 14 mg/dL (8-23); Calcium 9.2 mg/dL (8.5-10.5); Carbon Dioxide 28 mmol/L (22-29); Chloride 102 mmol/L (98-107); Globulin 3.4 g/dL (1.3-4.6); Glomerular Filtration Rate 215.2 mL/min (90-130); Glucose 185 mg/dL (65-115); Magnesium 1.8 mg/dL (1.7-2.3); Osmolality Calculated 295 mOsm/kg (285-295); Phosphorus 1.8 mg/dL (2.5-4.5); Potassium 3.3 mmol/L (3.5-5.1); Sodium 140 mmol/L (136-145); Total Bilirubin 0.6 mg/dL (0.15-1.2); Total Protein 6.6 g/dL (6.6-8.7)
[2020-03-20 04:57] LABS: NT Pro B Type Natriuretic Pept 161 pg/mL (0-125)
[2020-03-20] MEDS: enoxaparin 100 mg/mL Syringe SUBCUT ×2 (05:01→17:19)
[2020-03-20] MEDS: dilTIAZem 60 mg Tablet PO ×3 (05:01→17:18)
[2020-03-20] MEDS: metoclopramide oral liquid 5 mg/5 mL (ml) PO ×3 (05:01→17:18)
[2020-03-20 08:04] LABS: Glucose Point of Care 278 mg/dL (70-110)
[2020-03-20] MEDS: acetaminophen 325 mg Tablet PO (08:18)
[2020-03-20] MEDS: tamsulosin 0.4 mg Capsule PO (08:19)
[2020-03-20] MEDS: metoprolol tartrate 25 mg Tablet PO ×2 (08:20→17:19)
[2020-03-20] MEDS: atorvastatin 40 mg Tablet PO (08:21)
[2020-03-20] MEDS: duloxetine 60 mg Capsule PO (08:21)
[2020-03-20] MEDS: pantoprazole DR 40 mg Tablet PO ×2 (08:22→17:19)
--- NOTE | 2020-03-20 08:57 | USR_ITS ---
PROCEDURE INFORMATION: Exam: US Soft Tissue Head and Neck, Soft Tissue Exam date and time: 03/20/2020 10:47 AM Age: 65 years old Clinical indication: Other: Intractable hiccups TECHNIQUE: Imaging protocol: Limited ultrasound of the soft tissues of the neck. COMPARISON: US thyroid [id number] 03/20/2020 11:22 AM FINDINGS: No pathologic soft tissue mass or cystic collection in the visualized soft tissues of the neck. The thyroid and submandibular glands were not visualized on the examination performed. US/US soft tissue head neck [id number] IMPRESSION: No pathologic soft tissue mass or cystic collection in the visualized soft tissues of the neck.
--- NOTE | 2020-03-20 08:57 | CTR_ITS ---
PROCEDURE INFORMATION: Exam: CT Abdomen And Pelvis Without Contrast Exam date and time: 03/20/2020 10:23 AM Age: 65 years old Clinical indication: Other: Intractable hiccups TECHNIQUE: Imaging protocol: Computed tomography of the abdomen and pelvis without contrast. Radiation optimization: All CT scans at this facility use at least one of these dose optimization techniques: automated exposure control; mA and/or kV adjustment per patient size (includes targeted exams where dose is matched to clinical indication); or iterative reconstruction. COMPARISON: CT pelvis wo con [id number] 03/17/2020 12:15 AM RADIATION DOSE METRICS: Total DLP (mGy-cm): 1173.17 FINDINGS: Evaluation is limited by motion artifact and absence of intravenous contrast. Tubes, catheters and devices: Neuro muscular stimulation device. Inferior thorax: Asymmetric elevation of the right hemidiaphragm. Interstitial prominence, chronic granulomatous disease, and basilar airspace disease. Mild pleural thickening. Liver: Fatty infiltration of the liver. Gallbladder and bile ducts: High attenuation bile in the gallbladder. No biliary ductal dilatation. Pancreas: No pancreatic mass or ductal dilatation. Spleen: Splenic granulomata. Adrenal glands: Unremarkable adrenals. Kidneys and ureters: Bilateral renal cysts, including a 3.2 cm cyst in the lateral mid pole of the left kidney. No hydronephrosis. Stomach and bowel: Questionable wall thickening in the nondistended stomach. No significant small bowel dilatation. Prominent stool and diverticula. Appendix: No acute appendicitis. Intraperitoneal space: No significant free fluid. Vasculature: Vascular calcification. No abdominal aortic aneurysm. Lymph nodes: Subcentimeter lymph nodes. Urinary bladder: unremarkable bladder. Reproductive: prostate calcification. Bones/joints: Osteopenia and chronic L3 compression fracture. Schmorl's nodes and degenerative change. Soft tissues: Gynecomastia. Fat containing ventral wall and umbilical hernias. Extensive infiltration of subcutaneous fat and skin thickening in the left anterior abdominal wall. Left severe infiltration of subcutaneous fat and subcutaneous emphysema in the right anterolateral abdominal wall. CT/CT abdomen pelvis wo con [id number] IMPRESSION: 1. Extensive infiltration of subcutaneous fat and skin thickening in the left anterior abdominal wall. Left severe infiltration of subcutaneous fat and subcutaneous emphysema in the right anterolateral abdominal wall. 2. Questionable wall thickening in the nondistended stomach. 3. Additional findings as described above. COMMENTS: Consistent with the [employer]'s Incidental Findings Committee white paper (J Am Blanca Radiol 2018): Any incidental renal lesion less than 1 cm or classified as too small to characterize, or any incidental cystic renal lesion characterized as simple-appearing, is likely benign. No follow-up imaging is recommended for these lesions per consensus recommendations based on imaging criteria. Radiation Dose CTDIVOL = (mGy): DLP = 1173.17 (mGy-cm)
--- NOTE | 2020-03-20 08:57 | CTR_ITS ---
PROCEDURE INFORMATION: Exam: CT Head Without Contrast Exam date and time: 03/20/2020 10:23 AM Age: 65 years old Clinical indication: Other: Intractable hiccups; Additional info: Intractable hiccups, R/O stroke TECHNIQUE: Imaging protocol: Computed tomography of the head without contrast. Radiation optimization: All CT scans at this facility use at least one of these dose optimization techniques: automated exposure control; mA and/or kV adjustment per patient size (includes targeted exams where dose is matched to clinical indication); or iterative reconstruction. COMPARISON: CT head wo con* [id number] 09/12/2015 3:21 PM RADIATION DOSE METRICS: Total DLP (mGy-cm): 1445.62 FINDINGS: Brain: Extensive hypodensity and vasogenic edema in the right temporal and parietal lobes, producing 8 mm of midline shift to the left. MRI can be performed for improved characterization, as clinically indicated. Effacement of the right cortical sulci. Cerebral ventricles: Effacement of the right lateral ventricle. Bones/joints: No acute calvarial pathology. Paranasal sinuses: No sinus fluid. Mastoid air cells: No mastoid effusion. Soft tissues: Unremarkable soft tissues. CT/CT head wo con* [id number] IMPRESSION: Extensive hypodensity and vasogenic edema in the right temporal and parietal lobes, producing 8 mm of midline shift to the left. MRI can be performed for improved characterization, as clinically indicated. The aforementioned findings initiated a critical results communication pathway. An addendum will be issued at the time of clincian notification. Radiation Dose CTDIVOL = (mGy): DLP = 1445.62 (mGy-cm)
--- NOTE | 2020-03-20 08:57 | USR_ITS ---
PROCEDURE INFORMATION: Exam: US Soft Tissue Head and Neck, Thyroid Exam date and time: 03/20/2020 10:47 AM Age: 65 years old Clinical indication: Other: Incontractable hiccups; Additional info: Intratable hiccups TECHNIQUE: Imaging protocol: Real-time ultrasound scan of the neck with image documentation. Exam focused on the thyroid. COMPARISON: CTA Neck [id number] 11/30/2015 8:07 AM FINDINGS: Right thyroid lobe: Right lobe measures 3.3 by 1.3 x 1.5 cm. Inhomogeneous echotexture. No dominant solid or cystic right lobe nodule. Left thyroid lobe: Left lobe measures 2.6 x 1.3 by 1.3 cm. Inhomogeneous echotexture. No dominant solid or cystic left lobe nodule. Isthmus: Isthmus measures 2 mm in AP dimension. US/US thyroid [id number] IMPRESSION: Inhomogeneous thyroid echotexture, without dominant solid or cystic nodule.
--- NOTE | 2020-03-20 09:00 | PC.NURSE ---
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 Pt ate his breakfast and took his pills without any difficulty. Pt has been frequently incontinent. Assessed neurological status, pt is alert to name and place only, opens his eyes and follows command. Pt able to raise his arms slowly. no drift noted. Able to wiggle his toes and move his legs with verbal commands. Will monitor.
--- NOTE | 2020-03-20 09:41 | DCPLANNER ---
IMM completed with pt on 03/20/2020 @ 5509. Copy of rights given to pt.
[2020-03-20] MEDS: chlorPROMazine 25 mg Tablet PO ×2 (09:46→17:19)
[2020-03-20] MEDS: lidocaine 5% Patch 1 PATCH TOPICAL (09:46)
--- NOTE | 2020-03-20 10:30 | PC.NURSE ---
Noted Nerve stimulator on pt's lower back Noted during juan-cares that pt had a hard lump, box-like size in his back. Pt asked what it is and her verbalizes it is a nerve stimulator for his pain. I asked if it is on or off. Pt stated it is off . 1100- Notified in person due to contraindication on his ordered MRI and he is aware. CT scan of head with contrast is ordered instead.
[2020-03-20 11:44] LABS: Glucose Point of Care 181 mg/dL (70-110)
--- NOTE | 2020-03-20 12:07 | CTR_ITS ---
PROCEDURE INFORMATION: Exam: CT Head With Contrast Exam date and time: 03/20/2020 1:10 PM Age: 65 years old Clinical indication: Abnormal findings; Abnormal radiologic findings of head/skull; Intracranial mass/space-occupying lesion; Patient HX: Abnormal head CT and persistent hiccups; Additional info: Contrast enhanced head CT TECHNIQUE: Imaging protocol: Computed tomography of the head with intravenous contrast. Radiation optimization: All CT scans at this facility use at least one of these dose optimization techniques: automated exposure control; mA and/or kV adjustment per patient size (includes targeted exams where dose is matched to clinical indication); or iterative reconstruction. Contrast material: OMNI 300; Contrast volume: 95 ml; Contrast route: INTRAVENOUS (IV); COMPARISON: CT head wo con* [id number] 03/20/2020 10:34 AM RADIATION DOSE METRICS: Total DLP (mGy-cm): 936.43 FINDINGS: Brain: Poorly defined 7.9 x 5.6 x 4.7 cm necrotic mass in the right temporal lobe with peripheral hyperemia and prominent surrounding vasogenic edema, producing subfalcine and transtentorial herniation with 9 mm midline shift to the left. Neurosurgical consultation recommended. Cerebral ventricles: Effacement of the right lateral ventricle. Bones/joints: No acute calvarial pathology. Paranasal sinuses: No sinus fluid. Mastoid air cells: No mastoid effusion. Soft tissues: Unremarkable soft tissues. CT/CT head w con [id number] IMPRESSION: Poorly defined 7.9 x 5.6 x 4.7 cm necrotic mass in the right temporal lobe with peripheral hyperemia and prominent surrounding vasogenic edema, producing subfalcine and transtentorial herniation with 9 mm midline shift to the left. Neurosurgical consultation recommended. The aforementioned findings initiated a critical results communication pathway. An addendum will be issued at the time of clincian notification. Radiation Dose CTDIVOL = (mGy): DLP = 936.43 (mGy-cm)
[2020-03-20] MEDS: dexamethasone 4 mg/mL INJ 6 MG IVP (12:16)
[2020-03-20] MEDS: iohexol 300 mg/mL 100 mL Btl IV (13:27)
--- NOTE | 2020-03-20 13:41 | PC.NURSE ---
Transfer to ICU Hand-off report provided to MARIBEL.
--- NOTE | 2020-03-20 14:00 | PC.NURSE ---
Informed case management about situation with patient and his son regarding concerns for the son's safety at home. Patient's son is home alone and is disabled. Son stated to me I'm scared I haven't been home alone for this long before. I asked the son if he has any family or friends that may help him. He stated his neighbors will check on him at times.
--- NOTE | 2020-03-20 14:48 | PC.NURSE ---
Dr inman for transfer to [facility] per air vac
--- NOTE | 2020-03-20 15:00 | PC.NURSE ---
update given to suleiman at [facility] in [facility] .. for transfer
[2020-03-20 16:06] LABS: SARS Covid-2 Antigen Negative (Negative)
[2020-03-20 16:43] LABS: Alanine Aminotransferase 14 U/L (0-41); Albumin Level 3.7 g/dL (3.5-5.2); Alkaline Phosphatase 73 IU/L (40-130); Anion Gap 15.1 (5-19); Aspartate Amino Transferase 18 U/L (0-40); Blood Urea Nitrogen 11 mg/dL (8-23); Calcium 9.4 mg/dL (8.5-10.5); Carbon Dioxide 25 mmol/L (22-29); Chloride 96 mmol/L (98-107); Globulin 3.3 g/dL (1.3-4.6); Glomerular Filtration Rate 215.2 mL/min (90-130); Glucose 225 mg/dL (65-115); Osmolality Calculated 280 mOsm/kg (285-295); Potassium 4.1 mmol/L (3.5-5.1); Sodium 132 mmol/L (136-145); Total Bilirubin 0.5 mg/dL (0.15-1.2)
--- NOTE | 2020-03-20 17:08 | PM.TDS ---
Transfer Summary Providers Date of Admission: 03/17/20 01:06 Date of Discharge: 03/20/20 Attending Provider at Admission: Mirian Sauer MD Attending Provider at Transfer: Mendoza Steen MD Anticipated Date of Transfer: Anticipated date of transfer: 03/20/20 Receiving Facility & Provider: Receiving Provider: [] Receiving facility: [] Diagnoses at Discharge Discharge Diagnosis (1) Atrial fibrillation with RVR: Status: Acute (2) Fall: Status: Acute Qualifiers: Encounter type: initial encounter Qualified Code(s): W19.XXXA - Unspecified fall, initial encounter (3) Hip pain: Status: Acute (4) Bilateral pulmonary embolism: Status: Acute (5) GI bleed: Status: Acute (6) Physical deconditioning: Status: Acute (7) Acute respiratory failure with hypoxia: Status: Acute Reason for Visit Reason for Visit: LEFT HIP PAIN Hospital Course Hospital Course Past medical history of 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 fib with RVR on admission, complaints of intractable hiccups, urinary tract infection For his atrial fibrillation with RVR, he was started on a Cardizem drip, transition to p.o. Cardizem, initially not started on anticoagulation Mechanical fall, no evidence of hip fracture on CT UTI with sepsis, started vancomycin and Zosyn, clinically improved, cultures have been unremarkable, antibiotic therapy stopped On 03/17/2020 patient continued to have hypoxia, diagnosed with acute respiratory failure with hypoxia secondary to extensive bilateral pulmonary emboli, with evidence of occlusion, with evidence of right heart strain Pulmonary arteries: Right lower lobe pulmonary embolism, occlusive in the anterior and lateral basilar superior segments. Peripherally occlusive right middle lobe emboli involving the mediolateral segments. Partially occlusive right upper lobe anterior posterior segment pulmonary emboli. Nonocclusive left upper lobe apical and posterior segmental pulmonary emboli. Distal left main pulmonary embolus (be on the upper lobe artery) extending into the lingular and lower lobe pulmonary arteries, with occlusion of the lingular inferior segment. Peripheral embolus extending into the left lower lobe posterior and medial basilar segments without occlusion. Aorta: Mild aortic arch and descending thoracic aortic atherosclerotic calcification without ectasia. -echo This is technically very limited study. Echo contrast was used to enhance cardiac structures. LV systolic function is normal with EF of 55 to 60%. Normal diastolic function. Right ventricle is not well visualized. Grossly RV seems to be normal in size and function however complete assessment was not possible. Limited visualization of valvular structures. No gross abnormalities. -Has a history of GI bleeds which I feel are likely secondary to patient's splenic flexure adenocarcinoma, as patient started to have GI bleeds was on anticoagulation for atrial fibrillation, anticoagulation was held, then had a colonoscopy then found to have mass, then had surgical resection -After discussion of the risks and benefits, he was started on anticoagulation on 03/17/2020, hemoglobin remained stable, no hemodynamic compromise, hemoglobin was 13.6 before transfer Since admission patient continued to have intractable hiccups, patient has been having hiccups for many weeks, when I took over the service on 03/18/2020 I had tried baclofen, gabapentin, Reglan, Thorazine without any significant improvement. On 03/20/[address] of the head was ordered which showed: -Poorly defined 7.9 x 5.6 x 4.7 cm necrotic mass in the right temporal lobe with peripheral hyperemia and prominent surrounding vasogenic edema, producing subfalcine and transtentorial herniation with 9 mm midline shift to the left. -Patient was moved to the ICU, started on mannitol, Decadron, neurochecks -Patient remained alert oriented x3, follows all commands, no complaints of headaches, no blurry vision, only significant complaint is intractable hiccups -I have called, [facility], neurosurgeon, who has accepted the transfer Physical Exam Const: COMMON NORMALS: no acute distress and patient oriented x3 HENMT: COMMON NORMALS: normocephalic HEAD & SCALP: normocephalic Neck/C-Spine: COMMON NORMALS: no JVD Resp: COMMON NORMALS: normal respiratory effort, No retractions, No use of accessory muscles and clear to auscultation bilaterally AUSCULTATION: clear to auscultation bilaterally Cardio: COMMON NORMALS: no JVD, regular rate, regular rhythm, S1 normal heart sound present and S2 normal heart sound present RATE: regular rate RHYTHM: regular rhythm HEART SOUNDS: S1 normal heart sound present and S2 normal heart sound present GI: COMMON NORMALS: Normal to inspection, nondistended, normoactive bowel sounds present, Soft to palpation, non-tender, No hepatosplenomegaly present, no masses and no bruits PALPATION: Yes Soft to palpation and Yes No hepatosplenomegaly present Extremity: COMMON NORMALS: capillary refill normal, no clubbing, cyanosis or edema, no calf tenderness and no pedal edema Neuro: COMMON NORMALS: patient oriented x3 Psych: COMMON NORMALS: mental status grossly normal TS Data Data Completed and Pending: Completed Studies During Hospitalization Category Date Time Status CT abdomen pelvis wo con [id number] Rout ine Cat Scan 03/20/20 08:[address] angio chest PE protcl [id number] Rout ine Cat Scan 03/17/20 14:[address] head w con 704 60 Stat Cat Scan 03/20/20 12:[address] head wo con* 7 0450 Routine Cat Scan 03/20/20 08:[address] lumbar spine w con [id number] Routine Cat Scan 03/17/20 14:[address] pelvis wo con [id number] Urgent Cat Scan 03/16/20 23:[address] thoracic spine w con [id number] Routi ne Cat Scan 03/17/20 14:55 Completed XR chest 1V catracho ble [id number] Routine Exams 03/19/20 07:00 Completed XR chest 1V catracho ble [id number] Stat Exams 03/16/20 22:59 Completed XR hip LT 2-3V wo /w pel* [id number] Stat Exams 03/16/20 22:56 Completed XR shoulder LT mi n 2V* [id number] Stat Exams 03/16/20 22:59 Completed CV echo wo/w cont rast [id number] Routine Ultrasound 03/18/20 05:00 [place] [id number] Routin e Ultrasound 03/19/20 18:02 Completed US soft tissue he ad neck [id number] Rout ine Ultrasound 03/20/20 08:57 Completed US thyroid 75069 Routine Ultrasound 03/20/20 08:57 Completed Pending at discharge Category Date Time Status Blood Culture Sta t Lab 03/17/20 07:15 Results Complete Blood Co unt w/Auto AM LABS Lab 03/21/20 04:00 Ordered Comprehensive Met abolic Panel AM LA BS Lab 03/21/20 04:00 Ordered Magnesium AM LABS Lab 03/21/20 04:00 Ordered NT Pro B Type Felisha riuretic Pept QAM Lab 03/21/20 06:00 Ordered Phosphorus AM LAB S Lab 03/21/20 04:00 Ordered MR head wo/w con [id number] Stat MRI 03/20/20 11:31 Ordered US/CV paperwork R outine Ultrasound 03/18/20 Taken Labs from last 24 hours 03/20/20 03/20/20 03/20/20 16:05 15:30 11:29 WBC RBC Hgb Hct MCV MCH MCHC RDW Plt Count MPV Neut % (Auto) Lymph % (Auto) Brewster % (Auto) Eos % (Auto) Baso % (Auto) Neut # (Auto) Lymph # (Auto) Brewster # (Auto) Eos # (Auto) Baso # (Auto) Nucleated RBC % (a uto) Nucleated RBCs # Sodium 132 L Potassium 4.1 Chloride 96 L Carbon Dioxide 25 Anion Gap 15.1 BUN 11 Creatinine 0.4 L GFR Calculation 215.2 H Glucose 225 H POC Glucose 181 H Calculated Osmolal ity 280 L Calcium 9.4 Phosphorus Magnesium Total Bilirubin 0.5 AST 18 ALT 14 Alkaline Phosphata se 73 NT-Pro-B Natriuret Pep Total Protein 7.0 Albumin 3.7 Globulin 3.3 SARS-CoV-2 Ag (Rap id) Negative 03/20/20 03/20/20 03/20/20 07:27 03:51 03:51 WBC RBC Hgb Hct MCV MCH MCHC RDW Plt Count MPV Neut % (Auto) Lymph % (Auto) Brewster % (Auto) Eos % (Auto) Baso % (Auto) Neut # (Auto) Lymph # (Auto) Brewster # (Auto) Eos # (Auto) Baso # (Auto) Nucleated RBC % (a uto) Nucleated RBCs # Sodium 140 Potassium 3.3 L Chloride 102 Carbon Dioxide 28 Anion Gap 13.3 BUN 14 Creatinine 0.4 L GFR Calculation 215.2 H Glucose 185 H POC Glucose 278 H Calculated Osmolal ity 295 Calcium 9.2 Phosphorus 1.8 L Magnesium 1.8 Total Bilirubin 0.6 AST 18 ALT 15 Alkaline Phosphata se 69 NT-Pro-B Natriuret Pep 161 H Total Protein 6.6 Albumin 3.2 L Globulin 3.4 SARS-CoV-2 Ag (Rap id) 03/20/20 03/19/20 03:51 21:50 WBC 8.9 RBC 4.42 Hgb 13.6 Hct 41.5 L MCV 93.9 MCH 30.8 MCHC 32.8 RDW 11.4 L Plt Count 128 L MPV 12.0 H Neut % (Auto) 72.2 Lymph % (Auto) 18.6 Brewster % (Auto) 7.7 Eos % (Auto) 0.7 Baso % (Auto) 0.2 Neut # (Auto) 6.39 Lymph # (Auto) 1.7 Brewster # (Auto) 0.7 Eos # (Auto) 0.1 Baso # (Auto) 0.0 Nucleated RBC % (a uto) 0 Nucleated RBCs # 0.0 Sodium Potassium Chloride Carbon Dioxide Anion Gap BUN Creatinine GFR Calculation Glucose POC Glucose 240 H Calculated Osmolal ity Calcium Phosphorus Magnesium Total Bilirubin AST ALT Alkaline Phosphata se NT-Pro-B Natriuret Pep Total Protein Albumin Globulin SARS-CoV-2 Ag (Rap id) Vitals: Last Vital Signs Temp 98.1 F 03/20/20 11:30 Pulse 116 H 03/20/20 16:00 Resp 25 H 03/20/20 16:00 BP 133/92 03/20/20 16:00 Pulse Ox 79 L 03/20/20 15:00 TS Medications Medications Home Medications duloxetine 60 mg capsule,delayed release sprinkle 60 mg PO BID 03/26/19 [History Confirmed 03/17/20] metoprolol tartrate 25 mg tablet 12.5 mg PO BID 03/26/19 [History Confirmed 03/17/20] topiramate 100 mg capsule sprinkle,extended release 24 hr 100 mg PO BID each 03/26/19 [History Confirmed 03/17/20] zonisamide 100 mg capsule 200 mg PO BID 03/26/19 [History Confirmed 03/17/20] memantine 28 mg capsule sprinkle,extended release 24hr 28 mg PO DAILY #30 each 05/20/19 [Rx Confirmed 03/17/20] gabapentin 800 mg PO BEDTIME 10/01/19 [History Confirmed 03/17/20] ondansetron HCl 4 mg PO Q6H PRN 10/01/19 [History Confirmed 03/17/20] omeprazole 40 mg capsule,delayed release 40 mg PO DAILY #30 cap 12/15/19 [Rx Confirmed 03/17/20] simvastatin 80 mg tablet 80 mg PO DAILY 30 Days #30 tab 12/15/19 [Rx Confirmed 03/17/20] diltiazem HCl 180 mg capsule,extended release 24 hr 180 mg PO DAILY #90 cap 02/20/20 [Rx Confirmed 03/17/20] Active Medications Acetaminophen (Acetaminophen 325 Mg Tablet) 325 - 650 mg PO Q4H PRN PRN Reason: MILD PAIN OR INCREASE TEMP Last Admin: 03/20/20 08:18 Dose: 650 mg Documented by: Atorvastatin Calcium (Atorvastatin 40 Mg Tablet) 40 mg PO DAILY [facility] Last Admin: 03/20/20 08:21 Dose: 40 mg Documented by: Chlorpromazine HCl (Chlorpromazine 25 Mg Tablet) 25 mg PO Q6H [facility] Last Admin: 03/20/20 09:46 Dose: 25 mg Documented by: Dexamethasone (Dexamethasone 4 Mg/Ml Inj) 6 mg IVP Q8H [facility] Dextrose (Dextrose 50% Syringe 50 Ml) 25 ml IVP ONCE PRN; Protocol PRN Reason: hypoglycemia protocol Dextrose (Dextrose 50% Syringe 50 Ml) 50 ml IVP PRN PRN; Protocol PRN Reason: hypoglycemia protocol Diltiazem HCl (Diltiazem 60 Mg Tablet) 60 mg PO Q6H [facility] Last Admin: 03/20/20 11:23 Dose: 60 mg Documented by: Duloxetine HCl (Duloxetine 60 Mg Capsule) 60 mg PO BID [facility] Last Admin: 03/20/20 08:21 Dose: 60 mg Documented by: Enoxaparin Sodium (Enoxaparin 100 Mg/Ml Syringe) 100 mg 1 mg/kg (100 mg) SUBCUT Q12H [facility] Last Admin: 03/20/20 05:01 Dose: 100 mg Documented by: Glucagon (Glucagon 1 Mg/Ml Inj 1 Ml) 1 mg IM ONCE PRN; Protocol PRN Reason: Adult Acute Hypoglycemia Prot. Dextrose (D5w) 500 mls @ 100 mls/hr IV ONCE PRN; Protocol PRN Reason: Adult Acute Hypoglycemia Prot Insulin Aspart (Insulin Aspart 100 Unit/1 Ml) 0 unit SUBCUT TIDWM [facility]; Protocol Last Admin: 03/20/20 12:15 Dose: 1 unit Documented by: Lidocaine (Lidocaine 5% Patch) 1 patch TOPICAL [id number] [facility] Last Admin: 03/20/20 09:46 Dose: 1 patch Documented by: Metoclopramide HCl (Metoclopramide Oral Liquid 5 Mg/5 Ml (Ml)) 5 mg PO Q6H [facility] Last Admin: 03/20/20 11:24 Dose: 5 ml Documented by: Metoprolol Tartrate (Metoprolol Tartrate 25 Mg Tablet) 25 mg PO BID [facility] Last Admin: 03/20/20 08:20 Dose: 25 mg Documented by: Non-Formulary Medication (Topiramate) 100 mg PO BID [facility] Last Admin: 03/19/20 18:26 Dose: Not Given Documented by: Ondansetron HCl (Ondansetron 4 Mg Tablet) 4 mg PO Q6H PRN PRN Reason: Nausea Pantoprazole Sodium (Pantoprazole Dr 40 Mg Tablet) 40 mg PO BIDWM [facility] Last Admin: 03/20/20 08:22 Dose: 40 mg Documented by: Tamsulosin HCl (Tamsulosin 0.4 Mg Capsule) 0.4 mg PO DAILY [facility] Last Admin: 03/20/20 08:19 Dose: 0.4 mg Documented by: Discharge Plan Discharge Patient Disposition: Xfer Intermediate Care Fac Condition: Stable Prescriptions: No Action zonisamide 100 mg capsule 200 mg PO BID RF: 0 duloxetine 60 mg capsule, delayed rel sprinkle 60 mg PO BID RF: 0 metoprolol tartrate 25 mg tablet 12.5 mg PO BID RF: 0 topiramate 100 mg capsule,sprinkle,ER 24hr 100 mg PO BID RF: 0 memantine 28 mg capsule,sprinkle,ER 24hr 28 mg PO DAILY Qty: 30 RF: 5 omeprazole 40 mg capsule,delayed release(DR/EC) 40 mg PO DAILY Qty: 30 RF: 0 simvastatin 80 mg tablet 80 mg PO DAILY 30 Days Qty: 30 RF: 0 diltiazem HCl 180 mg capsule,extended release 24hr 180 mg PO DAILY Qty: 90 RF: 3 gabapentin 800 mg tablet 800 mg PO BEDTIME RF: 0 ondansetron HCl 4 mg Tablet 4 mg PO Q6H PRN (Reason: Nausea) RF: 0 Discharge Orders: Transfer Out of Facility (Order); Ordered 03/20/20 Ordered By: Mendoza Steen Transfer Attestations Time Spent in Transfer Care*: less than 30 min Quality Metrics Clinical Quality Measures: During this hospital stay, did patient experience: None Coding Level of Care Code Acute Bottom Bleacher for Chg Fwd Exam Comprehensive Diagnoses Atrial fibrillation with RVR I48.91 Fall W19.XXXA Encounter type: initial encounter Hip pain M25.559 Bilateral pulmonary embolism I26.99 GI bleed K92.2 Physical deconditioning R53.81 Acute respiratory failure with hypoxia J96.01
[2020-03-20 17:14] LABS: Glucose Point of Care 258 mg/dL (70-110)
--- NOTE | 2020-03-20 18:44 | PC.NURSE ---
air vac here report given and pt to transport to [facility]
--- NOTE | 2020-03-20 19:23 | PC.OT ---
OT note: Hold OT eval per RN as pt is going to be transferred to another facility.
== END 2020-03-21 07:58 | disposition short-term general hospital (02) | DRG 871 ==
LOC: ER 03-17 01:04 → CSU 03-17 02:15 → ICU 03-20 13:31
PROVIDERS: Student in an Organized Health Care Education/Training Program; Admitting Provider Internal Medicine; Emergency Provider Emergency Medicine; Visit Provider Family Medicine
DX: A41.9 Sepsis, unspecified organism (principal); I26.99 Other pulmonary embolism without acute cor pulmonale; J96.01 Acute respiratory failure with hypoxia; I48.19 Other persistent atrial fibrillation; N39.0 Urinary tract infection, site not specified; K92.2 Gastrointestinal hemorrhage, unspecified; G43.709 Chronic migraine without aura, not intractable, without status migrainosus; K64.8 Other hemorrhoids; I25.10 Atherosclerotic heart disease of native coronary artery without angina pectoris; G47.33 Obstructive sleep apnea (adult) (pediatric); E66.9 Obesity, unspecified; Z68.32 Body mass index [BMI] 32.0-32.9, adult; Z85.038 Personal history of other malignant neoplasm of large intestine; Z90.49 Acquired absence of other specified parts of digestive tract; G89.4 Chronic pain syndrome; I50.9 Heart failure, unspecified; I11.0 Hypertensive heart disease with heart failure; E11.9 Type 2 diabetes mellitus without complications; J44.9 Chronic obstructive pulmonary disease, unspecified; F32.9 Major depressive disorder, single episode, unspecified; E78.5 Hyperlipidemia, unspecified; G47.00 Insomnia, unspecified; W19.XXXA Unspecified fall, initial encounter; M25.552 Pain in left hip; G93.9 Disorder of brain, unspecified; Z92.21 Personal history of antineoplastic chemotherapy; R06.6 Hiccough; M51.26 Other intervertebral disc displacement, lumbar region; Z96.82 Presence of neurostimulator; R33.9 Retention of urine, unspecified
CPT/HCPCS: 12345; 36415; 36416; 36600; 51702; 70450; 70460; 71045; 71275; 72129; 72132; 72192; 73030; 73502; 74176; 76536; 80048; 80053; 80202; 81001; 82803; 82962; 83735; 83880; 84100; 84443; 84484; 85025; 85378; 85610; 87040; 87086; 87426; 93005; 93306; 93970; 96372; 97162; 99283; C8929; J1100; J1644; J1650; J1815; J1940; J2543; J2765; J3370; J3490; J7030; J7799; J8540; Q0161; Q9956; Q9967